=== PATIENT | male | born 1945 | race Hispanic/Latino ===

== ENCOUNTER 2017-02-09 11:06 | Observation (INO) | payer MEDICARE ==
[2017-02-09] MEDS ORDERED: NACL 0.9% 1 ML, VANCOMYCIN VIAL 1,000 MG IR ONE ×2 (11:35→14:30)
[2017-02-09 11:55] LABS: Basophils % (Auto) 0.6 % (0.0-1.8); Eosinophils % (Auto) 1.9 % (0.0-4.3); Hematocrit 39.1 % (35.5-45.6); Hemoglobin 13.7 gm/dl (11.8-15.2); Mean Corpuscular HGB Conc 35 % (32-34); Mean Corpuscular Hemoglobin 30 pg (28-32); Mean Corpuscular Volume 86 fl (84-94); Platelet Count 211 K/mm3 (140-440); Red Blood Count 4.56 M/mm3 (3.65-5.03); Red Cell Distribution Width 13.6 % (13.2-15.2); White Blood Count 4.4 K/mm3 (4.5-11.0)
[2017-02-09] MEDS ORDERED: ANCEF/STERILE WATER 2 GM/20 ML 2 GM/20 ML SYRINGE IV NR (12:00)
[2017-02-09 12:08] LABS: Anion Gap 17 mmol/L; Blood Urea Nitrogen 9 mg/dL (9-20); Calcium 9.2 mg/dL (8.4-10.2); Carbon Dioxide 27 mmol/L (22-30); Chloride 103.4 mmol/L (98-107); Glucose 103 mg/dL (75-100); Potassium 4.8 mmol/L (3.6-5.0); Sodium 143 mmol/L (137-145)
[2017-02-09 12:17] LABS: Partial Thromboplastin Time 29.2 Sec. (24.2-36.6)
[2017-02-09] MEDS ORDERED: NACL 0.45% 1000 ML 1,000 ML IV ONE (12:17)
[2017-02-09] MEDS: NACL 0.45% 1000 ML 1,000 ML IV SCH (12:40)
[2017-02-09] MEDS ORDERED: NACL 0.9% 500 ML IR ONE (14:27)
[2017-02-09] MEDS ORDERED: MARCAINE 0.5% 60 ML INFILTRATI ONE (14:28)
[2017-02-09] MEDS ORDERED: XYLOCAINE 1% 20 mL ONE ×2 (14:28→14:36)
[2017-02-09] MEDS ORDERED: ANCEF/STERILE WATER 2 GM/20 ML 2 GM/20 ML SYRINGE IV ONE (14:29)
[2017-02-09] MEDS: VERSED ONE ×2 (14:45→15:03)
[2017-02-09] MEDS: SUBLIMAZE ONE ×3 (14:46→15:13)
[2017-02-09] MEDS ORDERED: BENADRYL ONE (14:56)
--- NOTE | 2017-02-09 16:31 | Short Stay Summary ---
<CEDRIC ESPINAL - Last Filed: 02/09/17 16:37> Short Stay Documentation Date of service: 02/09/17 - History H&P: obtained from office - Allergies and Medications Current Medications: Allergies No Known Allergies Allergy (Verified 02/09/17 11:35) Home Medications Medication Instructions Recorded Confirmed Last Taken Type Amlodipine Besylate [Amlodipine 5 mg PO QDAY 02/09/17 02/09/17 02/08/17 History Besylate] HYDROcodone/APAP 5-325 [[place] 1 tab PO TID PRN 02/09/17 02/09/17 02/08/17 History 5-325 mg TAB] Lisinopril [Zestril] 20 mg PO QDAY 02/09/17 02/09/17 02/08/17 History Lovastatin [Altoprev] 40 mg PO QPM 02/09/17 02/09/17 02/08/17 History Active Medications Sodium Chloride (Nacl 0.45% 1000 Ml) 1,000 mls @ 50 mls/hr IV DIRECT BHAVIN Last Admin: 02/09/17 12:40 Dose: 50 mls/hr Cefazolin Sodium (Ancef/Sterile Water 2 Gm/20 Ml) 2 gm in 20 mls @ 80 mls/hr IV PREOP NR PRN Reason: Protocol Stop: 02/09/17 23:59 - Brief post op/procedure progress note Date of procedure: 02/09/17 Pre-op diagnosis: bradycardia Post-op diagnosis: same Procedure: PPM implantation - see report - Disposition Condition at discharge: Stable Disposition: DC-01 TO HOME OR SELFCARE Short Stay Discharge Plan Activity: advance as tolerated Follow up with: WENDY SUMMERS MD [Staff Physician] - 7 Days <MARY RAY - Last Filed: 02/10/17 13:27> Short Stay Documentation - History H&P: obtained from office - Allergies and Medications Current Medications: Allergies No Known Allergies Allergy (Verified 02/09/17 11:35) Home Medications Medication Instructions Recorded Confirmed Last Taken Type Amlodipine Besylate [Amlodipine 5 mg PO QDAY 02/09/17 02/09/17 02/08/17 History Besylate] HYDROcodone/APAP 5-325 [[place] 1 tab PO TID PRN 02/09/17 02/09/17 02/08/17 History 5-325 mg TAB] Lisinopril [Zestril] 20 mg PO QDAY 02/09/17 02/09/17 02/08/17 History Lovastatin [Altoprev] 40 mg PO QPM 02/09/17 02/09/17 02/08/17 History Active Medications Acetaminophen/Hydrocodone Bitart ([place] 5/325) each PO Q6H PRN PRN Reason: Pain, Moderate (4-6) Sodium Chloride (Nacl 0.45% 1000 Ml) 1,000 mls @ 50 mls/hr IV DIRECT BHAVIN Last Admin: 02/09/17 12:40 Dose: 50 mls/hr Cefazolin Sodium (Ancef/Sterile Water 2 Gm/20 Ml) 2 gm in 20 mls @ 80 mls/hr IV PREOP NR PRN Reason: Protocol Stop: 02/09/17 23:59 Cefazolin Sodium (Ancef/Ns 1 Gm/50 Ml) 1 gm in 50 mls @ 100 mls/hr IV Q8H BHAVIN Stop: 02/10/17 01:29 - Physical exam General appearance: no acute distress Integumentary: no rash, other (pacemaker generator pocket has no hematoma) HEENT: Atraumatic, Mucous membr. moist/pink Lungs: Clear to auscultation Heart: Regular rate, Normal S1, Normal S2 Gastrointestinal: normal, normoactive bowel sounds Extremities: pulses intact, pulses symmetrical, No edema Neurological: Normal gait, Normal speech, Cranial nerves 3-12 NL - Brief post op/procedure progress note Estimated blood loss: none Condition: stable - Hospital course Hospital course: He remained stable throughout his hospitalization with doubt cardiac symptoms. On the monitor on the day of discharge, he demonstrated intermittent failure to capture. After interrogation, it appears that his RV lead has been dislodged. This has been discussed with Dr. Summers and he will be undergoing a replacement of that lead next week. - Discharge Diagnoses (1) Presence of permanent cardiac pacemaker Status: Acute (2) Symptomatic bradycardia Status: Acute Short Stay Discharge Plan Activity: advance as tolerated Diet: low salt Wound: keep clean and dry Special Instructions: no heavy lifting, other (do not elevate left arm above shoulder level for 2 weeks)
--- NOTE | 2017-02-09 17:40 | XRay Report ---
FINAL REPORT EXAM: XR CHEST 1V AP HISTORY: Pacemaker Postop TECHNIQUE: upright single view chest PRIORS: None. FINDINGS: Cardiac and mediastinal contours are unremarkable. No focal pulmonary infiltrate is identified. No pleural fluid collection seen. Pulmonary vasculature is unremarkable. Left pacemaker noted. Lead wires intact. IMPRESSION: Negative single-view chest
[2017-02-09] MEDS: NORCO 5/325 PO PRN ×2 (18:01→23:38)
[2017-02-09] MEDS: ANCEF/NS 1 GM/50 ML 1 GM/50 ML BAG IV SCH (21:55)
[2017-02-10] MEDS: ANCEF/NS 1 GM/50 ML 1 GM/50 ML BAG IV SCH (05:16)
[2017-02-10] MEDS: NACL 0.45% 1000 ML 1,000 ML IV SCH (05:18)
[2017-02-10] MEDS: NORCO 5/325 PO PRN ×2 (05:23→15:09)
[2017-02-10 12:07] VITALS: BP 126/75
== END 2017-02-10 17:41 | disposition home or self-care (01) ==
LOC: CATHLABREC 11:06 → 4A 14:31
PROVIDERS: ADMIT Internal Medicine Cardiovascular Disease; ATTEND Internal Medicine Cardiovascular Disease
DX: I49.5 Sick sinus syndrome (principal); R00.1 Bradycardia, unspecified; I49.1 Atrial premature depolarization; R06.09 Other forms of dyspnea; I10 Essential (primary) hypertension; E78.5 Hyperlipidemia, unspecified
CPT/HCPCS: 33208; 36415; 71010; 80048; 85025; 85610; 85730; 93005; 93010; 96365; 96375; C1779; C1785; C1892; G0378; J0690; J1200; J2250; J3010; J3370; Q9967

== ENCOUNTER 2017-02-13 12:00 | Inpatient (IN) | payer MEDICARE ==
[2017-02-13] MEDS ORDERED: NACL 0.9% 1,000 ML, VANCOMYCIN VIAL 1,000 MG IR ONE (12:30)
[2017-02-13] MEDS ORDERED: ANCEF/STERILE WATER 2 GM/20 ML 2 GM/20 ML SYRINGE IV NR (13:00)
[2017-02-13] MEDS ORDERED: NACL 0.45% 1000 ML 1,000 ML IV SCH (14:00)
[2017-02-13] MEDS ORDERED: VANCOMYCIN/NS 1 GM/250 ML 1 GM/250 ML BAG IV ONE ×2 (14:45→14:47)
[2017-02-13] MEDS ORDERED: MARCAINE 0.5% INFILTRATI ONE (15:02)
[2017-02-13] MEDS ORDERED: XYLOCAINE 2% INFILTRATI ONE (15:02)
[2017-02-13] MEDS ORDERED: NACL 0.9% 500 ML 500 ML ONE (15:02)
[2017-02-13] MEDS: SUBLIMAZE ONE ×2 (15:15→15:26)
[2017-02-13] MEDS: VERSED ONE ×2 (15:15→15:26)
[2017-02-13] MEDS ORDERED: BENADRYL ONE (15:23)
[2017-02-13] MEDS ORDERED: VANCOMYCIN VIAL 1,000 MG in NACL 0.9% 1,000 ML IRRIGATION ONE (15:56)
[2017-02-13] MEDS: NORCO 5/325 PO PRN (19:54)
[2017-02-13] MEDS: ZOFRAN IV PRN (22:54)
[2017-02-13] MEDS: TYLENOL PO PRN (22:54)
[2017-02-13] MEDS: ANCEF/NS 1 GM/50 ML 1 GM/50 ML BAG IV SCH (22:55)
[2017-02-14] MEDS: NORCO 5/325 PO PRN ×2 (03:13→09:55)
[2017-02-14] MEDS: ULTRAM PO PRN ×2 (05:38→12:38)
[2017-02-14] MEDS: ANCEF/NS 1 GM/50 ML 1 GM/50 ML BAG IV SCH (06:49)
--- NOTE | 2017-02-14 07:29 | XRay Report ---
AP CHEST: HISTORY: Postop pacemaker placement AP view of the chest demonstrates a normal mediastinal and cardiac contour with clear lungs and normal bony and soft tissue structures. A 2-lead pacemaker device is in position terminating in the right atrium and right ventricle. No pneumothorax. IMPRESSION: Unremarkable AP chest.
[2017-02-14] MEDS: ZOFRAN IV PRN (07:57)
[2017-02-14] MEDS: TYLENOL PO PRN (07:57)
--- NOTE | 2017-02-14 10:56 | Short Stay Summary ---
Short Stay Documentation Date of service: 02/14/17 - History H&P: obtained from office - Allergies and Medications Current Medications: Allergies No Known Allergies Allergy (Verified 02/09/17 11:35) Home Medications Medication Instructions Recorded Confirmed Last Taken Type Amlodipine Besylate [Amlodipine 5 mg PO QDAY 02/09/17 02/13/17 02/12/17 History Besylate] 5mg HYDROcodone/APAP 5-325 [[place] 1 tab PO TID PRN 02/09/17 02/13/17 02/13/17 10:00 History 5-325 mg TAB] 1 tab Lisinopril [Zestril] 20 mg PO QDAY 02/09/17 02/13/17 02/12/17 History 20mg Lovastatin [Altoprev] 40 mg PO QPM 02/09/17 02/13/17 02/12/17 History 40mg Active Medications Acetaminophen (Tylenol) 650 mg PO Q4H PRN PRN Reason: Pain, Mild (1-3) Last Admin: 02/14/17 07:57 Dose: 650 mg Acetaminophen/Hydrocodone Bitart ([place] 5/325) 1 each PO Q6H PRN PRN Reason: Pain, Moderate (4-6) Last Admin: 02/14/17 09:55 Dose: 1 each Sodium Chloride (Nacl 0.45% 1000 Ml) 1,000 mls @ 42 mls/hr IV DIRECT BHAVIN Last Admin: 02/14/17 09:57 Dose: 42 mls/hr Ondansetron HCl (Zofran) 4 mg IV Q8H PRN PRN Reason: Nausea And Vomiting Last Admin: 02/14/17 07:57 Dose: 4 mg Tramadol HCl (Ultram) 50 mg PO Q6H PRN PRN Reason: Pain, Moderate (4-6) Last Admin: 02/14/17 05:38 Dose: 50 mg - Physical exam Integumentary: other (left pectoralis PPM implantation site covered with tegaderm and telfa dressing, site c/d/i with no evidence of bleeding or hematoma , left arm immobilizer in place) - Brief post op/procedure progress note Date of procedure: 02/13/17 Pre-op diagnosis: bradycardia Post-op diagnosis: same Procedure: PPM lead revision - see operative report Anesthesia: local Estimated blood loss: none Pathology: none Condition: stable - Hospital course Hospital course: Pt presented for scheduled PPM lead revision and successfully underwent lead revision per Dr. Summers on 02/13/2017. He was admitted overnight for observation and remained clinically and hemodynamically stable throughout his admission. Post-procedure CXR showed NAF, no pneumothorax. Device interrogation this AM revealed normal device function. VSS. He is discharging home today. - Disposition Condition at discharge: Stable Disposition: DC-01 TO HOME OR SELFCARE - Discharge Diagnoses (1) Presence of permanent cardiac pacemaker Status: Chronic (2) Symptomatic bradycardia Status: Chronic Short Stay Discharge Plan Activity: advance as tolerated Diet: low fat, low cholesterol, low salt Wound: keep clean and dry Follow up with: WENDY SUMMERS MD [Staff Physician] - 7 Days (02/26/2017 @ 2:30PM) Prescriptions: traMADol [Ultram 50 MG tab] 50 mg PO Q6H PRN #10 tablet PRN Reason: Pain, Moderate (4-6)
[2017-02-14 13:19] VITALS: BP 121/85
== END 2017-02-14 14:04 | disposition home or self-care (01) | DRG 262 ==
LOC: CATHLABREC 12:00 → 4A 13:13
PROVIDERS: ADMIT Internal Medicine Cardiovascular Disease; ATTEND Internal Medicine Cardiovascular Disease
PROC: 02WA3MZ Revision of Cardiac Lead in Heart, Percutaneous Approach (ICD-10-PCS; principal; 2017-02-13)
DX: T82.120A Displacement of cardiac electrode, initial encounter (principal); Z79.899 Other long term (current) drug therapy; I10 Essential (primary) hypertension; E78.5 Hyperlipidemia, unspecified; Y83.8 Other surgical procedures as the cause of abnormal reaction of the patient, or of later complication, without mention of misadventure at the time of the procedure; Y92.89 Other specified places as the place of occurrence of the external cause; I49.5 Sick sinus syndrome
CPT/HCPCS: 33215; 71010; 93005; 93010; J0690; J1200; J2250; J2405; J3010; J3370; J7040

== ENCOUNTER 2018-03-10 10:07 | Emergency (ER) | payer MEDICARE ==
[2018-03-10] MEDS ORDERED: ASPIRIN PO ONE (10:23)
[2018-03-10 11:15] LABS: Basophils % (Auto) 0.7 % (0.0-1.8); Eosinophils # (Auto) 0.1 K/mm3 (0.0-0.4); Eosinophils % (Auto) 2.5 % (0.0-4.3); Hematocrit 39.8 % (35.5-45.6); Hemoglobin 13.9 gm/dl (11.8-15.2); Lymphocytes # (Auto) 1.2 K/mm3 (1.2-5.4); Lymphocytes % (Auto) 24.8 % (13.4-35.0); Mean Corpuscular HGB Conc 35 % (32-34); Mean Corpuscular Hemoglobin 31 pg (28-32); Mean Corpuscular Volume 88 fl (84-94); Monocytes # (Auto) 0.4 K/mm3 (0.0-0.8); Monocytes % (Auto) 7.5 % (0.0-7.3); Red Blood Count 4.52 M/mm3 (3.65-5.03); Red Cell Distribution Width 13.5 % (13.2-15.2)
[2018-03-10 11:16] LABS: Platelet Count 213 K/mm3 (140-440)
[2018-03-10 11:18] LABS: BUN/Creatinine Ratio 14; Blood Urea Nitrogen 11 mg/dL (9-20); Calcium 9.1 mg/dL (8.4-10.2); Hemolysis Index 94
--- NOTE | 2018-03-10 16:23 | Emergency Department Report ---
HPI - General Chief Complaint: Chest Pain Time Seen by Provider: 03/10/18 11:58 - HPI HPI: The patient is a 72-year-old male who presents for evaluation of chest pain. The patient reports 1 week of on and off mild aching chest pain, associated with fatigue on exertion. The patient says that he received a stress test and echocardiogram within the past 3-4 months with his chief client officer Dr. Martinez. He states that his chest pain resolved prior to my evaluation. The patient denies fever, cough, dyspnea at rest, syncope, hemoptysis, unilateral leg swelling, recent immobilization. ED Past Medical Hx - Past Medical History Previous Medical History?: Yes Hx Hypertension: Yes Hx Heart Attack/AMI: No Hx Congestive Heart Failure: No Hx Diabetes: No Hx GERD: Yes Hx Arthritis: Yes Additional medical history: High cholesterol, pacemaker - Surgical History Hx Pacemaker: Yes (Current reason for admission) Additional Surgical History: collar bone, pace maker placement - Social History Smoking Status: Never Smoker - Medications Home Medications: Home Medications Medication Instructions Recorded Confirmed Last Taken Type Amlodipine Besylate 5 mg PO QDAY 02/09/17 02/13/17 02/12/17 History 5mg HYDROcodone/APAP 5-325 [[place] 1 tab PO TID PRN 02/09/17 02/13/17 02/13/17 10:00 History 5-325 mg TAB] 1 tab Lisinopril [Zestril TAB] 20 mg PO QDAY 02/09/17 02/13/17 02/12/17 History 20mg Lovastatin [Altoprev] 40 mg PO QPM 02/09/17 02/13/17 02/12/17 History 40mg traMADol [Ultram 50 MG tab] 50 mg PO Q6H PRN #10 tablet 02/14/17 Unknown Rx ED Review of Systems ROS: Stated complaint: CHEST PAINS Other details as noted in HPI Constitutional: denies: fever ENT: denies: throat or neck pain Respiratory: denies: cough, shortness of breath Cardiovascular: reports: chest pain Endocrine: denies unexplained weight loss or gain Gastrointestinal: denies: abdominal pain, nausea Genitourinary: denies: dysuria Musculoskeletal: denies: leg swelling Skin: denies: rash Neurological: denies: headache Hematological/Lymphatic: denies: easy bleeding or easy bruising Psych: denies sadness or hopelessness Physical Exam - Physical Exam Vital Signs: Vital Signs 03/10/18 03/10/18 03/10/18 10:13 15:47 15:49 Temperature 98.8 F Pulse Rate 50 L 64 Respiratory 18 16 16 Rate Blood Pressure 139/75 Blood Pressure 139/75 120/76 [Right] O2 Sat by Pulse 96 100 100 Oximetry Physical Exam: General: well-nourished, well-developed, no acute distress Head: Normocephalic, atraumatic Eyes: normal sclera ENT: Mucous membranes are pink and moist Neck: trachea midline, neck supple, No neck stiffness, no cervical adenopathy Respiratory: Breath sounds equal bilaterally, no wheezing, rales, or rhonchi Cardio: S1 and S2 present, no murmurs, rubs, gallops, capillary refill is brisk Abdomen: Normoactive bowel sounds, soft abdomen, no rigidity, no guarding or rebound tenderness Musc: No pitting edema Skin: No rash Neuro: no facial drooping, normal speech Psych: Normal affect ED Course Vital Signs 03/10/18 03/10/18 03/10/18 10:13 15:47 15:49 Temperature 98.8 F Pulse Rate 50 L 64 Respiratory 18 16 16 Rate Blood Pressure 139/75 Blood Pressure 139/75 120/76 [Right] O2 Sat by Pulse 96 100 100 Oximetry ED Medical Decision Making - Lab Data Result diagrams: 03/10/18 10:31 03/10/18 10:31 - Medical Decision Making The patient was seen and examined by myself. The patient is placed on a rn cardiac rehab and continuous pulse ox. On initial evaluation, the patient was found to be in no distress. EKG was negative for findings suggestive of acute cardiac infarct. Labs and imaging are obtained. Chest x-ray is negative for pneumothorax, focal consolidation, pulmonary vascular congestion, pleural effusion, or other obvious acute cardiopulmonary disease process. Lab results were non-concerning including levels of troponin, WBC, hemoglobin, hematocrit, electrolytes, renal function. The patient was reevaluated and reported that he remain asymptomatic, without any chest pain or dyspnea whatsoever. As the patient received a stress test within the past 6 months and echocardiogram within the past 6 months, and is found to have essentially unremarkable EKG and 2 sets of normal troponin levels, the patient is stable for outpatient follow- up with his chief client officer Dr. Martinez. The patient is given follow-up and return instructions. The patient expressed understanding and agreed with the plan. The patient is discharged in stable condition. Critical care attestation.: If time is entered above; I have spent that time in minutes in the direct care of this critically ill patient, excluding procedure time. ED Disposition Clinical Impression: Chest pain in adult Disposition: DC-01 TO HOME OR SELFCARE Is pt being admited?: No Does the pt Need Aspirin: No Condition: Stable Instructions: Angina (ED), Chest Pain (ED) Referrals: FLOR MARTINEZ MD [Staff Physician] - 3-5 Days PRIMARY CARE, [Primary Care Provider] - 3-5 Days Time of Disposition: 16:22
[2018-03-10 16:46] VITALS: BP 121/77
== END 2018-03-10 16:46 | disposition home or self-care (01) ==
LOC: ED 10:07
DX: R07.89 Other chest pain (principal); R53.83 Other fatigue; I10 Essential (primary) hypertension; M19.90 Unspecified osteoarthritis, unspecified site; K21.9 Gastro-esophageal reflux disease without esophagitis; E78.00 Pure hypercholesterolemia, unspecified; Z95.0 Presence of cardiac pacemaker; Z79.899 Other long term (current) drug therapy
CPT/HCPCS: 36415; 80048; 84484; 85025; 93005; 93010

== ENCOUNTER 2019-03-10 10:34 | Emergency (ER) | payer MEDICARE ==
[2019-03-10] MEDS ORDERED: ASPIRIN PO ONE (10:55)
[2019-03-10 11:27] LABS: Basophils % (Auto) 0.6 % (0.0-1.8); Eosinophils # (Auto) 0.1 K/mm3 (0.0-0.4); Eosinophils % (Auto) 2.4 % (0.0-4.3); Hematocrit 39.5 % (35.5-45.6); Hemoglobin 14.2 gm/dl (11.8-15.2); Lymphocytes # (Auto) 1.6 K/mm3 (1.2-5.4); Mean Corpuscular HGB Conc 36 % (32-34); Mean Corpuscular Volume 87 fl (84-94); Monocytes # (Auto) 0.6 K/mm3 (0.0-0.8); Monocytes % (Auto) 9.9 % (0.0-7.3); Platelet Count 227 K/mm3 (140-440); Red Blood Count 4.54 M/mm3 (3.65-5.03); Red Cell Distribution Width 13.7 % (13.2-15.2)
--- NOTE | 2019-03-10 11:45 | XRay Report ---
CHEST 1 VIEW INDICATION: Chest Pain. COMPARISON: 02/13/2017 report FINDINGS: Support devices: A 2-lead pacemaker device appears in good position. Heart: Within normal limits. Lungs/Pleura: No acute air space or interstitial disease. Additional findings: None. IMPRESSION: No acute findings. Signer Name: Jostin Huerta Jr, MD Signed: 03/10/2019 11:41 AM Workstation Name: [id number]
[2019-03-10 11:47] LABS: BUN/Creatinine Ratio 14; Blood Urea Nitrogen 19 mg/dL (9-20); Calcium 9.2 mg/dL (8.4-10.2); Hemolysis Index 6
[2019-03-10] MEDS ORDERED: NACL 0.9% 1000 ML 1,000 ML IV ONE (13:43)
[2019-03-10] MEDS ORDERED: TORADOL IV ONE (13:43)
[2019-03-10] MEDS ORDERED: ASPIRIN ONE (13:53)
--- NOTE | 2019-03-10 14:00 | Emergency Department Report ---
ED General Adult HPI - General Chief complaint: Chest Pain Stated complaint: CHEST PAIN/NAUSEA Time Seen by Provider: 03/10/19 13:31 Source: patient Mode of arrival: Ambulatory Limitations: No Limitations - History of Present Illness Initial comments: 73-year-old male with history of pacemaker, arthritis, chronic low back pain presents to ED with generalized weakness and pain. Patient reports chronic pain to right arm and leg for several years, told it was arthritis. Also reports chronic low back pain. Patient reports that he has been under the care of pain management and was taking lortab and another pain medication, but has not seen pain mgmt in 2 months. Patient also reports headache and neck pain for 1-2 months. Denies any injury, fall, car accident. Patient also has a pacemaker, reports mild, intermittent chest pain, lasting for a few seconds at a time. However, pt states he has been having this pain for 8 or 9 months. Pt states his chest pain is mild compared to his other reported pain. Location: head, neck, chest, right, upper extremity, lower extremity Severity scale (0 -10): 5 Quality: aching Consistency: intermittent Improves with: medication Worsens with: none Associated Symptoms: chest pain, headaches, nausea/vomiting, weakness. denies: cough, diaphoresis, fever/chills, shortness of breath - Related Data Home Medications Medication Instructions Recorded Confirmed Last Taken Amlodipine Besylate 5 mg PO QDAY 02/09/17 02/13/17 02/12/17 5mg HYDROcodone/APAP 5-325 [[place] 1 tab PO TID PRN 02/09/17 02/13/17 02/13/17 10:00 5-325 mg TAB] 1 tab Lisinopril [Zestril TAB] 20 mg PO QDAY 02/09/17 02/13/17 02/12/17 20mg Lovastatin [Altoprev] 40 mg PO QPM 02/09/17 02/13/17 02/12/17 40mg Previous Rx's Medication Instructions Recorded Last Taken Type traMADol [Ultram 50 MG tab] 50 mg PO Q6H PRN #10 tablet 02/14/17 Unknown Rx traMADol [Ultram] 50 mg PO Q6HR PRN #7 tablet 03/10/19 Unknown Rx Allergies Allergy/AdvReac Type Severity Reaction Status Date / Time No Known Allergies Allergy Verified 02/09/17 11:35 ED Review of Systems ROS: Stated complaint: CHEST PAIN/NAUSEA Other details as noted in HPI Comment: All other systems reviewed and negative Constitutional: denies: chills, fever Respiratory: denies: shortness of breath Cardiovascular: chest pain Gastrointestinal: nausea, vomiting. denies: abdominal pain Musculoskeletal: as per HPI Neurological: headache ED Past Medical Hx - Past Medical History Previous Medical History?: Yes Hx Hypertension: Yes Hx Heart Attack/AMI: No Hx Congestive Heart Failure: No Hx Diabetes: No Hx GERD: Yes Hx Arthritis: Yes Additional medical history: High cholesterol, pacemaker, hearing loss with bilateral hearing aids - Surgical History Past Surgical History?: Yes Hx Pacemaker: Yes (Current reason for admission) Additional Surgical History: collar bone, pace maker placement - Social History Smoking Status: Never Smoker Substance Use Type: None - Medications Home Medications: Home Medications Medication Instructions Recorded Confirmed Last Taken Type Amlodipine Besylate 5 mg PO QDAY 02/09/17 02/13/17 02/12/17 History 5mg HYDROcodone/APAP 5-325 [[place] 1 tab PO TID PRN 02/09/17 02/13/17 02/13/17 10:00 History 5-325 mg TAB] 1 tab Lisinopril [Zestril TAB] 20 mg PO QDAY 02/09/17 02/13/17 02/12/17 History 20mg Lovastatin [Altoprev] 40 mg PO QPM 02/09/17 02/13/17 02/12/17 History 40mg traMADol [Ultram 50 MG tab] 50 mg PO Q6H PRN #10 tablet 02/14/17 Unknown Rx traMADol [Ultram] 50 mg PO Q6HR PRN #7 tablet 03/10/19 Unknown Rx ED Physical Exam - General Limitations: No Limitations General appearance: alert, in no apparent distress - Head Head exam: Present: atraumatic, normocephalic - Eye Eye exam: Present: normal appearance, PERRL, EOMI - ENT ENT exam: Present: mucous membranes moist - Neck Neck exam: Present: normal inspection, full ROM. Absent: tenderness, meningismus - Respiratory Respiratory exam: Present: normal lung sounds bilaterally. Absent: respiratory distress - Cardiovascular Cardiovascular Exam: Present: regular rate, normal rhythm - GI/Abdominal GI/Abdominal exam: Present: soft. Absent: distended, tenderness - Extremities Exam Extremities exam: Present: normal inspection - Neurological Exam Neurological exam: Present: alert, oriented X3, CN II-XII intact. Absent: motor sensory deficit - Psychiatric Psychiatric exam: Present: normal affect - Skin Skin exam: Present: warm, dry, intact, normal color ED Course Vital Signs 03/10/19 03/10/19 03/10/19 10:52 13:30 13:41 Temperature 97.9 F Pulse Rate 61 67 Respiratory 18 9 L 13 Rate Blood Pressure 106/68 103/64 O2 Sat by Pulse 100 100 100 Oximetry 03/10/19 03/10/19 03/10/19 14:00 14:30 15:00 Temperature Pulse Rate 67 58 L 50 L Respiratory 7 L 8 L 8 L Rate Blood Pressure 105/68 115/67 115/70 O2 Sat by Pulse 100 100 100 Oximetry 03/10/19 03/10/19 03/10/19 15:30 16:03 16:31 Temperature Pulse Rate 50 L 54 L 62 Respiratory 9 L 16 11 L Rate Blood Pressure 105/61 105/61 118/55 O2 Sat by Pulse 100 100 Oximetry 03/10/19 03/10/19 17:00 17:30 Temperature Pulse Rate 66 51 L Respiratory 9 L 11 L Rate Blood Pressure 100/66 120/66 O2 Sat by Pulse 100 100 Oximetry ED Medical Decision Making - Lab Data Result diagrams: 03/10/19 10:58 03/10/19 10:58 - EKG Data -: EKG Interpreted by Vt EKG shows normal: sinus rhythm Rate: normal - EKG Data When compared to previous EKG there are: no significant change Interpretation: no acute changes, other (RBBB) - Radiology Data Radiology results: report reviewed, image reviewed - Medical Decision Making 73-year-old male with exacerbation of chronic pain due to his arthritis. He also reported several week history of headache and neck pain. Patient is afebrile, no signs of meningismus on exam. No noted neurologic deficits. No chest pain currently. Chest pain that was reported patient states has been present for several months now. EKG unremarkable. Troponin negative 2. Patient advised to follow up with his primary care physician. Return precautions given. - Differential Diagnosis chronic pain, ACS, radiculopathy, intracranial abnormality Critical care attestation.: If time is entered above; I have spent that time in minutes in the direct care of this critically ill patient, excluding procedure time. ED Disposition Clinical Impression: Chronic pain of right upper extremity, Chronic pain of right lower extremity, Degenerative disc disease, cervical, Headache, Chest pain Disposition: TO HOME OR SELFCARE Is pt being admited?: No Condition: Stable Instructions: Chest Pain (ED), Chronic Pain (ED), Degenerative Disc Disease (ED) Prescriptions: traMADol [Ultram] 50 mg PO Q6HR PRN #7 tablet PRN Reason: Pain Referrals: Rei GUTIERREZ MD [Staff Physician] - 3-5 Days TYRONE MEJIA MD [Primary Care Provider] - 3-5 Days PRIMARY CAREMD [Referring] - 3-5 Days CAITLYN MORIN MD [Staff Physician] - 3-5 Days TJ OMER MD [Referring] - 3-5 Days JACKLYN BAILEY MD [Staff Physician] - 3-5 Days CAMILA ROMAN MD [Referring] - 3-5 Days Time of Disposition: 17:33
[2019-03-10] MEDS ORDERED: SOLU-Medrol IV ONE (14:47)
[2019-03-10] MEDS ORDERED: NORCO 5/325 PO ONE ×2 (15:06→17:07)
--- NOTE | 2019-03-10 16:37 | Cat Scan Report ---
CT HEAD WITHOUT CONTRAST INDICATION / CLINICAL INFORMATION: headache. TECHNIQUE: All CT scans at this location are performed using CT dose reduction for ALARA by means of automated e xposure control. COMPARISON: None available. FINDINGS: HEMORRHAGE: No evidence of intracranial hemorrhage or extra-axial fluid collection. EXTRA-AXIAL SPACES: Cortical sulci and sylvian fissures are mildly enlarged reflecting a degree of pa renchymal volume loss which is within normal limits for the patient's age of 73 years. Basilar cister ns have an unremarkable appearance. VENTRICULAR SYSTEM: The third and lateral ventricles are within normal limits for size given the moira ent's age of 73 years. CEREBRAL PARENCHYMA: No significant areas of abnormal brain parenchymal attenuation are identified. MIDLINE SHIFT OR HERNIATION: There is no mass effect. CEREBELLUM / BRAINSTEM: Brainstem and cerebellum have an unremarkable appearance. INTRACRANIAL VESSELS:Calcified atherosclerotic plaque is present along the course of the cavernous se gments of both internal carotid arteries. ORBITS: Patient is status post cataract surgery. The orbits have an otherwise unremarkable appearance . SOFT TISSUES of HEAD: No significant abnormality. CALVARIUM: Evaluation of bone windows reveals no abnormalities. PARANASAL SINUSES / MASTOID AIR CELLS: Paranasal sinuses are free from inflammatory mucosal disease. Mastoid air cells are normally pneumatized. IMPRESSION: 1. No significant abnormalities are identified on head CT without contrast. Signer Name: Charly Ritchie MD Signed: 03/10/2019 4:33 PM Workstation Name: [id number] eyes
--- NOTE | 2019-03-10 16:54 | Cat Scan Report ---
CT CERVICAL SPINE WITHOUT CONTRAST INDICATION: Neck pain. COMPARISON: None available. TECHNIQUE: Axial, coronal and sagittal CT imaging of the cervical spine without contrast was performe d. All CT scans at this location are performed using CT dose reduction for ALARA by means of automat ed exposure control. FINDINGS: VERTEBRAE:No acute fracture. There is exaggeration of the cervical lordosis and mild levoscoliosis. DISC SPACES: Multilevel mild discogenic degenerative changes are most significant at C4-C5. FACET JOINTS:There is multilevel facet hypertrophy. CENTRAL CANAL: No significant central canal stenosis is identified. There is moderate to severe right neural foraminal narrowing at C4-C5 secondary to uncovertebral joint hypertrophy. No additional sign ificant neural foraminal narrowing is seen. SOFT TISSUES:No significant abnormality. LUNG APICES: No significant abnormality. ADDITIONAL FINDINGS: None IMPRESSION: 1. No acute abnormality of the cervical spine. 2. Degenerative changes as above. Signer Name: Flavio Mckinley MD Signed: 03/10/2019 4:49 PM Workstation Name: [id number]
[2019-03-10 17:50] VITALS: BP 120/66
== END 2019-03-10 17:45 | disposition home or self-care (01) ==
LOC: ED 10:34
DX: M79.601 Pain in right arm (principal); M54.5 Low back pain; R51 Headache; R07.89 Other chest pain; M50.30 Other cervical disc degeneration, unspecified cervical region; G89.29 Other chronic pain; I10 Essential (primary) hypertension; K21.9 Gastro-esophageal reflux disease without esophagitis; M19.90 Unspecified osteoarthritis, unspecified site; E78.00 Pure hypercholesterolemia, unspecified; Z95.0 Presence of cardiac pacemaker; Z79.899 Other long term (current) drug therapy
CPT/HCPCS: 36415; 70450; 71045; 72125; 80048; 84484; 85025; 93005; 93010; 96361; 96374; 96375; 99285; J1885; J2930; J7030

== ENCOUNTER 2019-05-06 11:03 | Emergency (ER) | payer MEDICARE ==
[2019-05-06] MEDS ORDERED: ASPIRIN 325 MG TAB PO ONE (11:32)
--- NOTE | 2019-05-06 12:10 | XRay Report ---
CHEST 1 VIEW INDICATION: Chest Pain. COMPARISON: 03/10/2019 FINDINGS: Support devices: 2-lead pacemaker device is unchanged in position. Heart: Within normal limits. Lungs/Pleura: No acute air space or interstitial disease. Additional findings: None. IMPRESSION: No acute findings. No change since 03/10/2019. Signer Name: Jostin Huerta Jr, MD Signed: 05/06/2019 12:06 PM Workstation Name: [id number]
[2019-05-06 12:46] LABS: Basophils % (Auto) 0.7 % (0.0-1.8); Eosinophils # (Auto) 0.1 K/mm3 (0.0-0.4); Eosinophils % (Auto) 2.6 % (0.0-4.3); Hemoglobin 12.8 gm/dl (11.8-15.2); Lymphocytes # (Auto) 1.2 K/mm3 (1.2-5.4); Lymphocytes % (Auto) 25.4 % (13.4-35.0); Mean Corpuscular HGB Conc 35 % (32-34); Mean Corpuscular Volume 87 fl (84-94); Monocytes # (Auto) 0.5 K/mm3 (0.0-0.8); Monocytes % (Auto) 10.2 % (0.0-7.3); Platelet Count 181 K/mm3 (140-440); Red Blood Count 4.14 M/mm3 (3.65-5.03); Red Cell Distribution Width 13.7 % (13.2-15.2)
[2019-05-06 14:01] LABS: Alanine Aminotransferase 18 units/L (7-56); Albumin 4.4 g/dL (3.9-5); BUN/Creatinine Ratio 14; Blood Urea Nitrogen 13 mg/dL (9-20); Calcium 9.1 mg/dL (8.4-10.2); Hemolysis Index 18
--- NOTE | 2019-05-06 16:35 | Emergency Department Report ---
HPI - General Chief Complaint: Upper Respiratory Infection Time Seen by Provider: 05/06/19 16:20 - HPI HPI: Room 3 The patient is a 73-year-old male presenting with a chief complaint of "feeling bad." The patient states the past 2-3 days has not felt like himself. Patient states he has a hard time describing what he is feeling but notices he has had decreased strength and nausea. Patient states at times he feels off balance and that his head does not "feel right." Patient denies pain of any type including chest pain. Patient does admit to shortness of breath and dyspnea on exertion and going up stairs for the past 2-3 days. Denies vomiting. Patient states he has had a cough but is nonproductive. Location: [See above] Duration: [See above] Quality: [See above] Severity: [See above] Timing: [See above] Context: [See above] Modifying factors: [See above] Associated signs and symptoms: [see above] ED Past Medical Hx - Past Medical History Previous Medical History?: Yes Hx Hypertension: Yes Hx GERD: Yes Hx Arthritis: Yes Additional medical history: High cholesterol, pacemaker, hearing loss with bilateral hearing aids - Surgical History Past Surgical History?: Yes Hx Pacemaker: Yes (Current reason for admission) Additional Surgical History: collar bone, pace maker placement - Family History Family history: no significant - Social History Smoking Status: Never Smoker Substance Use Type: None - Medications Home Medications: Home Medications Medication Instructions Recorded Confirmed Last Taken Type Amlodipine Besylate 5 mg PO QDAY 02/09/17 02/13/17 02/12/17 History 5 mg HYDROcodone/APAP 5-325 [[place] 1 tab PO TID PRN 02/09/17 02/13/17 02/13/17 10:00 History 5-325 mg TAB] 1 tab Lisinopril [Zestril TAB] 20 mg PO QDAY 02/09/17 02/13/17 02/12/17 History 20 mg Lovastatin [Altoprev] 40 mg PO QPM 02/09/17 02/13/17 02/12/17 History 40 mg traMADol [Ultram 50 MG tab] 50 mg PO Q6H PRN #10 tablet 02/14/17 Unknown Rx traMADol [Ultram] 50 mg PO Q6HR PRN #7 tablet 03/10/19 Unknown Rx ED Review of Systems ROS: Stated complaint: NOT FEELING GOOD/SICK Other details as noted in HPI Constitutional: fever (?), malaise Eyes: denies: eye pain ENT: throat pain Respiratory: shortness of breath, SOB with exertion Cardiovascular: denies: chest pain Endocrine: no symptoms reported Gastrointestinal: nausea. denies: vomiting Genitourinary: denies: dysuria Musculoskeletal: denies: back pain Neurological: denies: headache Physical Exam - Physical Exam Vital Signs: Vital Signs 05/06/19 11:11 Temperature 98.7 F Pulse Rate 81 Respiratory 18 Rate Blood Pressure 129/87 O2 Sat by Pulse 96 Oximetry Physical Exam: GENERAL: The patient is well-developed well-nourished male lying on stretcher not appearing to be in acute distress. [] HEENT: Normocephalic. Atraumatic. Extraocular motions are intact. Patient has moist mucous membranes. NECK: Supple. No meningitic signs are noted. Trachea midline CHEST/LUNGS: Clear to auscultation. There is no respiratory distress noted. HEART/CARDIOVASCULAR: Regular. There is no tachycardia. There is no gallop rub or murmur. ABDOMEN: Abdomen is soft, nontender. Patient has normal bowel sounds. There is no abdominal distention. SKIN: There is no rash. There is no edema. There is no diaphoresis. NEURO: The patient is awake, alert, and oriented. The patient is cooperative. The patient has no focal neurologic deficits. The patient has normal speech. Cranial nerves II through XII grossly intact, no drift MUSCULOSKELETAL: There is no evidence of acute injury. ED Course Vital Signs 05/06/19 11:11 Temperature 98.7 F Pulse Rate 81 Respiratory 18 Rate Blood Pressure 129/87 O2 Sat by Pulse 96 Oximetry ED Medical Decision Making - Lab Data Result diagrams: 05/06/19 11:58 05/06/19 11:58 Laboratory Tests 05/06/19 05/06/19 05/06/19 11:58 11:58 11:58 WBC 4.7 RBC 4.14 Hgb 12.8 Hct 36.0 MCV 87 MCH 31 MCHC 35 H RDW 13.7 Plt Count 181 Lymph % (Auto) 25.4 [place] % (Auto) 10.2 H Eos % (Auto) 2.6 Baso % (Auto) 0.7 Lymph # 1.2 [place] # 0.5 Eos # 0.1 Baso # 0.0 Seg Neutrophils % 61.1 Seg Neutrophils # 2.9 PT INR APTT D-Dimer Sodium 140 Potassium 5.0 Chloride 104.8 Carbon Dioxide 24 Anion Gap 16 BUN 13 Creatinine 0.9 Estimated GFR > 60 BUN/Creatinine Ratio 14 Glucose 113 H Calcium 9.1 Magnesium Total Bilirubin 0.70 AST 21 ALT 18 Alkaline Phosphatase 68 Troponin T < 0.010 NT-Pro-B Natriuret Pep Total Protein 6.8 Albumin 4.4 Albumin/Globulin Ratio 1.8 TSH Free T4 Urine Color Urine Turbidity Urine pH Ur Specific [place] Urine Protein Urine Glucose (UA) Urine Ketones Urine Blood Urine Nitrite Urine Bilirubin Urine Urobilinogen Ur Leukocyte Esterase Urine WBC (Auto) Urine RBC (Auto) U Epithel Cells (Auto) 05/06/19 05/06/19 05/06/19 16:29 16:29 16:29 WBC RBC Hgb Hct MCV MCH MCHC RDW Plt Count Lymph % (Auto) [place] % (Auto) Eos % (Auto) Baso % (Auto) Lymph # [place] # Eos # Baso # Seg Neutrophils % Seg Neutrophils # PT 13.2 INR 1.01 APTT 31.8 D-Dimer 308.21 H Sodium Potassium Chloride Carbon Dioxide Anion Gap BUN Creatinine Estimated GFR BUN/Creatinine Ratio Glucose Calcium Magnesium 2.20 Total Bilirubin AST ALT Alkaline Phosphatase Troponin T < 0.010 NT-Pro-B Natriuret Pep Total Protein Albumin Albumin/Globulin Ratio TSH Free T4 Urine Color Urine Turbidity Urine pH Ur Specific [place] Urine Protein Urine Glucose (UA) Urine Ketones Urine Blood Urine Nitrite Urine Bilirubin Urine Urobilinogen Ur Leukocyte Esterase Urine WBC (Auto) Urine RBC (Auto) U Epithel Cells (Auto) 05/06/19 05/06/19 05/06/19 16:29 16:34 16:39 WBC RBC Hgb Hct MCV MCH MCHC RDW Plt Count Lymph % (Auto) [place] % (Auto) Eos % (Auto) Baso % (Auto) Lymph # [place] # Eos # Baso # Seg Neutrophils % Seg Neutrophils # PT INR APTT D-Dimer Sodium Potassium Chloride Carbon Dioxide Anion Gap BUN Creatinine Estimated GFR BUN/Creatinine Ratio Glucose Calcium Magnesium Total Bilirubin AST ALT Alkaline Phosphatase Troponin T NT-Pro-B Natriuret Pep 76.46 Total Protein Albumin Albumin/Globulin Ratio TSH 1.060 Free T4 1.14 Urine Color Yellow Urine Turbidity Clear Urine pH 7.0 Ur Specific [place] 1.013 Urine Protein <15 mg/dl Urine Glucose (UA) Neg Urine Ketones Neg Urine Blood Neg Urine Nitrite Neg Urine Bilirubin Neg Urine Urobilinogen < 2.0 Ur Leukocyte Esterase Neg Urine WBC (Auto) < 1.0 Urine RBC (Auto) < 1.0 U Epithel Cells (Auto) < 1.0 05/06/19 19:00 WBC RBC Hgb Hct MCV MCH MCHC RDW Plt Count Lymph % (Auto) [place] % (Auto) Eos % (Auto) Baso % (Auto) Lymph # [place] # Eos # Baso # Seg Neutrophils % Seg Neutrophils # PT INR APTT D-Dimer Sodium Potassium Chloride Carbon Dioxide Anion Gap BUN Creatinine Estimated GFR BUN/Creatinine Ratio Glucose Calcium Magnesium Total Bilirubin AST ALT Alkaline Phosphatase Troponin T < 0.010 NT-Pro-B Natriuret Pep Total Protein Albumin Albumin/Globulin Ratio TSH Free T4 Urine Color Urine Turbidity Urine pH Ur Specific [place] Urine Protein Urine Glucose (UA) Urine Ketones Urine Blood Urine Nitrite Urine Bilirubin Urine Urobilinogen Ur Leukocyte Esterase Urine WBC (Auto) Urine RBC (Auto) U Epithel Cells (Auto) - EKG Data -: EKG Interpreted by Me EKG shows normal: sinus rhythm Rate: bradycardia (53 bpm) - EKG Data When compared to previous EKG there are: previous EKG unavailable Interpretation: nonspecific ST-T wave ashly (T-wave inversion in lead 3) - Radiology Data Radiology results: report reviewed (chest x-ray, CT head), image reviewed (chest x-ray, CT head) interpreted by me: Chest x-ray-no focal infiltrates, no pneumothorax [address] [address] XRay Report Signed Patient: AISLINN FIERRO MR#: [id number] 47 : 1945 Acct:[id number] Age/Sex: 73 / M ADM Date: 05/06/19 Loc: ED Attending Dr: Ordering Physician: URBANO BARRY MD Date of Service: 05/06/19 Procedure(s): XR chest 1V ap Accession Number(s): [id number] cc: ED MD JHONNY Fluoro Time In Minutes: CHEST 1 VIEW INDICATION: Chest Pain. COMPARISON: 03/10/2019 FINDINGS: Support devices: 2-lead pacemaker device is unchanged in position. Heart: Within normal limits. Lungs/Pleura: No acute air space or interstitial disease. Additional findings: None. IMPRESSION: No acute findings. No change since 03/10/2019. Signer Name: Jostin Huerta Jr, MD Signed: 05/06/2019 12:06 PM Workstation Name: [id number] Transcribed By: TTR Dictated By: JOSTIN HUERTA JR, MD Electronically Authenticated By: JOSTIN HUERTA JR, MD Signed Date/Time: 05/06/191205 DD/ 05 TD/TT: [facility] [address] [place] [address] Cat Scan Report Signed Patient: AISLINN FIERRO MR#: [id number] [birth year] : 1945 Acct:[id number] Age/Sex: 73 / M ADM Date: 05/06/19 Loc: ED Attending Dr: Ordering Physician: TATIANA FONG MD Date of Service: 05/06/19 Procedure(s): CT head/brain wo con Accession Number(s): [id number] cc: TATIANA FONG MD CT BRAIN: 05/06/2019 INDICATION / CLINICAL INFORMATION: nausea, "head doesn't feel right". COMPARISON: 03/10/2019 FINDINGS: BRAIN/INTRACRANIAL STRUCTURES: Unenhanced CT images of the brain demonstrate no evidence of acute intracranial abnormality. Ventricles and sulci are slightly prominent in size, consistent with age-related atrophic change. There is no evidence of acute ischemic injury, hemorrhage, or mass. There are no abnormal extra-axial fluid collections. EXTRACRANIAL STRUCTURES: Unremarkable. IMPRESSION: No acute abnormality. No change when compared to 03/10/2019. All CT scans at this location are performed using dose reduction to ALARA by means of automated exposure control. Signer Name: Tomas Machado MD Signed: 05/06/2019 5:00 PM Workstation Name: [id number] Transcribed By: AO Dictated By: Tomas Machado MD Electronically Authenticated By: Tomas Machado MD Signed Date/Time: 05/06/19 170 DD/ 58 TD/TT: - Differential Diagnosis symptoms dramatically anemia, hypothyroidism, electrolyte abnormality, ACS, Critical care attestation.: If time is entered above; I have spent that time in minutes in the direct care of this critically ill patient, excluding procedure time. ED Disposition Clinical Impression: Decreased energy Disposition: DC-01 TO HOME OR SELFCARE Is pt being admited?: No Does the pt Need Aspirin: No Condition: Stable Instructions: Weakness (ED) Additional Instructions: Return to the emergency department should you develop worsening symptoms, inability to tolerate food or liquids, high fever or any other concerns Referrals: TYRONE MEJIA MD [Primary Care Provider] - 3-5 Days Time of Disposition: 21:28
[2019-05-06 16:58] LABS: Bilirubin,Urine NEG (Negative); Blood,Urine NEG (Negative); Color,Urine Yellow (Yellow); Protein,Urine <15 mg/dL mg/dL (Negative); RBC,Urine < 1.0 /HPF (0.0-6.0); Urobilinogen,Urine < 2.0 mg/dL (<2.0); WBC,Urine < 1.0 /HPF (0.0-6.0)
--- NOTE | 2019-05-06 17:04 | Cat Scan Report ---
CT BRAIN: 05/06/2019 INDICATION / CLINICAL INFORMATION: nausea, "head doesn't feel right". COMPARISON: 03/10/2019 FINDINGS: BRAIN/INTRACRANIAL STRUCTURES: Unenhanced CT images of the brain demonstrate no evidence of acute int racranial abnormality. Ventricles and sulci are slightly prominent in size, consistent with age-related atrophic change. There is no evidence of acute ischemic injury, hemorrhage, or mass. There are no abnormal extra-axial fluid collections. EXTRACRANIAL STRUCTURES: Unremarkable. IMPRESSION: No acute abnormality. No change when compared to 03/10/2019. All CT scans at this location are performed using dose reduction to ALARA by means of automated expos ure control. Signer Name: Tomas Machado MD Signed: 05/06/2019 5:00 PM Workstation Name: [id number]
[2019-05-06 17:16] LABS: Free T4 (Free Thyroxine) 1.14 ng/dL (0.76-1.46)
[2019-05-06 17:27] LABS: INR 1.01 (0.87-1.13)
[2019-05-06 17:29] LABS: Partial Thromboplastin Time 31.8 Sec. (24.2-36.6)
[2019-05-06] MEDS ORDERED: ACETAMINOPHEN 500 MG TAB PO ONE (19:02)
--- NOTE | 2019-05-06 21:13 | Cat Scan Report ---
CTA CHEST WITH IV CONTRAST INDICATION: shortness of breath, elevated d-dimer. TECHNIQUE: Axial CT images were obtained through the chest after injection of 100 cc Omnipaque 350 IV contrast. 3 plane MIP reconstructions were produced. All CT scans at this location are performed using CT dose reduction for ALARA by means of automated exposure control. COMPARISON: None available. FINDINGS: PULMONARY ARTERIES: No pulmonary emboli. THORACIC AORTA: No acute abnormality. HEART: Normal. CORONARY ARTERIES: No significant calcification. PLEURA: No pleural effusion. No pneumothorax. LYMPH NODES: No significant adenopathy. LUNGS: 7 mm right upper lobe pulmonary nodule image 56. Bibasilar dependent atelectasis. ADDITIONAL FINDINGS: Left subclavian pacemaker leads. UPPER ABDOMEN: No acute findings. Gallbladder surgically absent. SKELETAL STRUCTURES: No significant osseous abnormality. IMPRESSION: 1. No CT evidence for pulmonary embolism. 2. No acute findings. Signer Name: Eze Bolanos MD Signed: 05/06/2019 9:08 PM Workstation Name: [id number]
[2019-05-06 21:39] VITALS: BP 147/68
== END 2019-05-06 21:30 | disposition home or self-care (01) ==
LOC: ED 11:03
DX: R53.83 Other fatigue (principal); I10 Essential (primary) hypertension; K21.9 Gastro-esophageal reflux disease without esophagitis; M19.90 Unspecified osteoarthritis, unspecified site; E78.00 Pure hypercholesterolemia, unspecified; Z95.0 Presence of cardiac pacemaker
CPT/HCPCS: 36415; 70450; 71045; 71275; 80053; 81001; 83735; 83880; 84439; 84443; 84484; 85025; 85379; 85610; 85730; 93005; 93010; 99285; Q9967

== ENCOUNTER 2019-11-26 14:40 | Observation (INO) | payer MEDICARE ==
[2019-11-26] MEDS ORDERED: ASPIRIN 325 MG TAB PO ONE (18:27)
--- NOTE | 2019-11-26 18:57 | XRay Report ---
CHEST 2 VIEWS INDICATION / CLINICAL INFORMATION: MAIN: Chest Pain; Pt. sent by Dr. Sandy for edema. Pt. has hx of CHF and has an AICD. COMPARISON: 05/06/2019 FINDINGS: SUPPORT DEVICES: Left-sided pacemaker HEART / MEDIASTINUM: No significant abnormality. LUNGS / PLEURA: No significant pulmonary or pleural abnormality. No pneumothorax. ADDITIONAL FINDINGS: No significant additional findings. IMPRESSION: No acute disease or interval change from 05/06/2019 Signer Name: Abraham Moreno MD FACR Signed: 11/26/2019 6:53 PM Workstation Name: [id number]
--- NOTE | 2019-11-26 20:26 | Emergency Department Report ---
ED Chest Pain HPI - General Chief Complaint: Dyspnea/Respdistress Stated Complaint: DOC SENT/CHEST/STOMACH PAIN/BRENDA Time Seen by Provider: 11/26/19 20:03 Source: patient Mode of arrival: Ambulatory Limitations: No Limitations - History of Present Illness Initial Comments: Patient is 73 years old male with history of hypertension, pacemaker. 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 Patient stated that he does not have chest pain at this moment but he has been experiencing some chest pain for the last few days associated with shortness of breath especially when he climbed stair. Patient is also complaining of bilateral lower extremity swelling and abdominal swelling. Patient denied any fever or cough. No runny nose or congestion. Patient also denied any contact with patient with COVID-19. MD Complaint: chest pain -: days(s) Onset: during rest Pain Location: substernal Severity: mild Quality: heaviness - Related Data Home Medications Medication Instructions Recorded Confirmed Last Taken Amlodipine Besylate 5 mg PO QDAY 02/09/17 02/13/17 02/12/17 5 mg HYDROcodone/APAP 5-325 [[place] 1 tab PO TID PRN 02/09/17 02/13/17 02/13/17 10:00 5-325 mg TAB] 1 tab Lovastatin [Altoprev] 40 mg PO QPM 02/09/17 02/13/17 02/12/17 40 mg lisinopriL [Zestril TAB] 20 mg PO QDAY 02/09/17 02/13/17 02/12/17 20 mg Previous Rx's Medication Instructions Recorded Last Taken Type traMADoL [Ultram 50 MG tab] 50 mg PO Q6H PRN #10 tablet 02/14/17 Unknown Rx traMADoL [Ultram] 50 mg PO Q6HR PRN #7 tablet 03/10/19 Unknown Rx Allergies Allergy/AdvReac Type Severity Reaction Status Date / Time No Known Allergies Allergy Verified 02/09/17 11:35 Heart Score - HEART Score History: Moderately suspicious EKG: Non-specific Age: > 65 Risk factors: > 3 risk factors or hx of atherosclerotic disease Troponin: < normal limit HEART Score: 6 - Critical Actions Critical Actions: 4-6 pts:12-16.6% risk of adverse cardiac event. Should be admitted ED Review of Systems ROS: Stated complaint: DOC SENT/CHEST/STOMACH PAIN/BRENDA Other details as noted in HPI ED Past Medical Hx - Past Medical History Previous Medical History?: Yes Hx Hypertension: Yes Hx Heart Attack/AMI: No Hx Congestive Heart Failure: No Hx Diabetes: No Hx GERD: Yes Hx Arthritis: Yes Additional medical history: High cholesterol, pacemaker, hearing loss with b ilateral hearing aids - Surgical History Past Surgical History?: Yes Hx Pacemaker: Yes (Current reason for admission) Additional Surgical History: collar bone, pace maker placement - Social History Smoking Status: Never Smoker Substance Use Type: None - Medications Home Medications: Home Medications Medication Instructions Recorded Confirmed Last Taken Type Amlodipine Besylate 5 mg PO QDAY 02/09/17 02/13/17 02/12/17 History 5 mg HYDROcodone/APAP 5-325 [[place] 1 tab PO TID PRN 02/09/17 02/13/17 02/13/17 10:00 History 5-325 mg TAB] 1 tab Lovastatin [Altoprev] 40 mg PO QPM 02/09/17 02/13/17 02/12/17 History 40 mg lisinopriL [Zestril TAB] 20 mg PO QDAY 02/09/17 02/13/17 02/12/17 History 20 mg traMADoL [Ultram 50 MG tab] 50 mg PO Q6H PRN #10 tablet 02/14/17 Unknown Rx traMADoL [Ultram] 50 mg PO Q6HR PRN #7 tablet 03/10/19 Unknown Rx ED Physical Exam - General Limitations: No Limitations General appearance: alert, in no apparent distress - Head Head exam: Present: atraumatic, normocephalic, normal inspection - Eye Eye exam: Present: normal appearance, PERRL - ENT ENT exam: Present: normal exam, normal orophraynx, mucous membranes moist - Neck Neck exam: Present: normal inspection, full ROM. Absent: tenderness, meningismus - Respiratory Respiratory exam: Present: normal lung sounds bilaterally - Cardiovascular Cardiovascular Exam: Present: bradycardia - GI/Abdominal GI/Abdominal exam: Present: soft, normal bowel sounds. Absent: distended, tenderness, guarding, rebound, rigid, organomegaly, mass, bruit, pulsatile mass, hernia - Extremities Exam Extremities exam: Present: normal inspection, full ROM, normal capillary refill, pedal edema. Absent: calf tenderness - Back Exam Back exam: Present: normal inspection, full ROM. Absent: CVA tenderness (R), CVA tenderness (L) - Neurological Exam Neurological exam: Present: alert, oriented X3, CN II-XII intact - Psychiatric Psychiatric exam: Present: normal mood - Skin Skin exam: Present: warm, intact, normal color ED Course Vital Signs 11/26/19 11/26/19 11/26/19 14:46 14:49 20:20 Temperature 98.0 F 97.6 F Pulse Rate 60 61 Respiratory 18 12 Rate Blood Pressure 125/73 Blood Pressure 138/76 [Left] O2 Sat by Pulse 97 98 Oximetry 11/26/19 21:12 Temperature Pulse Rate Respiratory 16 Rate Blood Pressure Blood Pressure [Left] O2 Sat by Pulse Oximetry ED Medical Decision Making - Lab Data Result diagrams: 11/26/19 19:56 11/26/19 19:56 - EKG Data -: EKG Interpreted by Ma EKG shows normal: sinus rhythm Rate: bradycardia - EKG Data Interpretation: no acute changes - Radiology Data Radiology results: report reviewed - Medical Decision Making Patient is 73 years old male with history of hypertension, pacemaker. 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 Patient stated that he does not have chest pain at this moment but he has been experiencing some chest pain for the last few days associated with shortness of breath especially when he climbed stair. Patient is also complaining of bilateral lower extremity swelling and abdominal swelling. Patient denied any fever or cough. No runny nose or congestion. Patient also denied any contact with patient with COVID-19. EKG shows sinus bradycardia, no ST elevation. Chest x-ray is unremarkable. Labs reviewed and showed a negative troponin. I discussed the patient with Dr. Santo, he agreed to admit the patient to medical service for further management Critical care attestation.: If time is entered above; I have spent that time in minutes in the direct care of this critically ill patient, excluding procedure time. ED Disposition Clinical Impression: Chest pain, Shortness of breath Disposition: OP ADMIT IP TO THIS HOSP Is pt being admited?: Yes Condition: Stable Instructions: Chest Pain (ED) Referrals: TYRONE MEJIA MD [Primary Care Provider] - 3-5 Days
[2019-11-26 20:28] LABS: Basophils % (Auto) 0.8 % (0.0-1.8); Eosinophils # (Auto) 0.2 K/mm3 (0.0-0.4); Eosinophils % (Auto) 4.3 % (0.0-4.3); Hematocrit 38.2 % (35.5-45.6); Hemoglobin 13.1 gm/dl (11.8-15.2); Lymphocytes # (Auto) 1.6 K/mm3 (1.2-5.4); Lymphocytes % (Auto) 36.6 % (13.4-35.0); Mean Corpuscular HGB Conc 34 % (32-34); Mean Corpuscular Volume 87 fl (84-94); Monocytes # (Auto) 0.5 K/mm3 (0.0-0.8); Monocytes % (Auto) 11.9 % (0.0-7.3); Platelet Count 185 K/mm3 (140-440); Red Blood Count 4.42 M/mm3 (3.65-5.03); Red Cell Distribution Width 13.5 % (13.2-15.2)
[2019-11-26 20:37] LABS: INR 1.08 (0.87-1.13)
[2019-11-26 20:37] LABS: BUN/Creatinine Ratio 14; Blood Urea Nitrogen 14 mg/dL (9-20); Calcium 9.4 mg/dL (8.4-10.2); Hemolysis Index 4
[2019-11-26 20:38] LABS: Partial Thromboplastin Time 29.5 Sec. (24.2-36.6)
[2019-11-26 20:41] LABS: Alanine Aminotransferase 13 units/L (7-56); Albumin 4.3 g/dL (3.9-5); Bilirubin,Direct < 0.2 mg/dL (0-0.2)
[2019-11-26] MEDS ORDERED: ASPIRIN 325 MG TAB ONE (21:07)
[2019-11-26] MEDS ORDERED: MORPHINE 2 MG/1 ML INJ ONE (21:07)
[2019-11-26] MEDS ORDERED: MORPHINE 2 MG/1 ML INJ IV ONE (21:07)
[2019-11-26] MEDS ORDERED: ONDANSETRON 4 MG/2 ML INJ ONE (21:07)
[2019-11-26] MEDS ORDERED: ONDANSETRON 4 MG/2 ML INJ IV ONE (21:07)
[2019-11-26] MEDS ORDERED: ONDANSETRON 4 MG/2 ML INJ IV PRN (22:29)
[2019-11-26] MEDS ORDERED: ACETAMINOPHEN 325 MG TAB PO PRN (22:29)
[2019-11-26] MEDS ORDERED: MAGNESIUM HYDROXIDE (MOM) ORAL LIQD UDC PO PRN (22:29)
[2019-11-26] MEDS ORDERED: NITROGLYCERIN 0.4 MG TAB SUBL SL PRN (22:29)
[2019-11-26] MEDS ORDERED: MORPHINE 2 MG/1 ML INJ IV PRN (22:29)
--- NOTE | 2019-11-26 22:40 | History and Physical Report ---
History of Present Illness Date of examination: 11/26/19 Date of admission: 11/26/2019 Chief complaint: Chest pain History of present illness: 73-year-old male with history of hypertension history of pacemaker in place presenting to the emergency room today complaining of chest pain shortness of breath which has been ongoing for about 3 days. Patient follows up with Dr. Du yap elevator conductor. He has been encouraged to report to the emergency room by his elevator conductor if he continues to have the symptoms. Indicates his chest pain and shortness of breath is worse on exertion especially when he climbs the stairs. Chest pain improves upon rest. Denies any fever or chills, no nausea vomiting, no headache or dizziness. He has had some mild ankle swelling lately. Patient denies any recent travel and no sick contacts. Denies any contact with anyone with COVID-19. Upon arrival in the emergency room chest pain was said to have subsided. Work-up so far in the emergency room has been unremarkable. Past History Past Medical History: arthritis, GERD, hypertension, hyperlipidemia Past Surgical History: Other (Pacemaker placement, collar bone surgery) Social history: no significant social history Family history: no significant family history Medications and Allergies Allergies Allergy/AdvReac Type Severity Reaction Status Date / Time No Known Allergies Allergy Verified 02/09/17 11:35 Home Medications Medication Instructions Recorded Confirmed Last Taken Type Amlodipine Besylate 5 mg PO QDAY 02/09/17 02/13/17 02/12/17 History 5 mg HYDROcodone/APAP 5-325 [[place] 1 tab PO TID PRN 02/09/17 02/13/17 02/13/17 10:00 History 5-325 mg TAB] 1 tab Lovastatin [Altoprev] 40 mg PO QPM 02/09/17 02/13/17 02/12/17 History 40 mg lisinopriL [Zestril TAB] 20 mg PO QDAY 02/09/17 02/13/17 02/12/17 History 20 mg traMADoL [Ultram 50 MG tab] 50 mg PO Q6H PRN #10 tablet 02/14/17 Unknown Rx traMADoL [Ultram] 50 mg PO Q6HR PRN #7 tablet 03/10/19 Unknown Rx Active Meds: Active Medications Acetaminophen (Tylenol) 650 mg PO Q4H PRN PRN Reason: Pain MILD(1-3)/Fever >100.5/CANALES Aspirin (Ecotrin) 325 mg PO QDAY BHAVIN Magnesium Hydroxide (Milk Of Magnesia) 30 ml PO Q4H PRN PRN Reason: Constipation Morphine Sulfate (Morphine) 2 mg IV Q5MIN PRN PRN Reason: Chest Pain unrelieved by NTG Nitroglycerin (Nitrostat) 0.4 mg SL Q5M PRN PRN Reason: Chest Pain Ondansetron HCl (Zofran) 4 mg IV Q8H PRN PRN Reason: Nausea And Vomiting Sodium Chloride (Sodium Chloride Flush Syringe 10 Ml) 10 ml IV PRN PRN PRN Reason: LINE FLUSH Sodium Chloride (Sodium Chloride Flush Syringe 10 Ml) 10 ml IV BID BHAVIN Sodium Chloride (Sodium Chloride Flush Syringe 10 Ml) 10 ml IV PRN PRN PRN Reason: LINE FLUSH Review of Systems Constitutional: no fever, no chills, no sweats Cardiovascular: chest pain, no palpitations Respiratory: shortness of breath, no cough Gastrointestinal: no abdominal pain, no nausea, no vomiting, no diarrhea Genitourinary Male: no dysuria, no hematuria Musculoskeletal: no neck pain, no low back pain Integumentary: no rash, no pruritis Neurological: no syncope, no headaches, no confusion Exam - Constitutional Vitals: Temp Pulse Resp BP Pulse Ox 97.6 F 61 16 138/76 98 11/26/19 20:20 11/26/19 20:20 11/26/19 21:12 11/26/19 20:20 11/26/19 20:20 General appearance: Present: no acute distress, well-nourished - EENT Eyes: Present: PERRL, EOM intact ENT: hearing intact, clear oral mucosa, dentition normal - Neck Neck: Present: supple, normal ROM - Respiratory Respiratory effort: normal Respiratory: bilateral: CTA - Cardiovascular Rhythm: other (Pacemaker in place on the left anterior chest wall) Heart Sounds: Present: S1 & S2 - Extremities Extremities: no ischemia, pulses intact, pulses symmetrical, No edema, Full ROM Peripheral Pulses: within normal limits - Abdominal General gastrointestinal: Present: soft, non-tender, non-distended, normal bowel sounds - Integumentary Integumentary: Present: clear, warm, dry - Musculoskeletal Musculoskeletal: strength equal bilaterally - Psychiatric Psychiatric: appropriate mood/affect, intact judgment & insight, cooperative - Neurologic Neurologic: CNII-XII intact, moves all extremities HEART Score - HEART Score EKG: Non-specific Age: > 65 Risk factors: > 3 risk factors or hx of atherosclerotic disease Troponin: Troponin T < 0.010 ng/mL (0.00-0.029) 11/26/19 21:39 Troponin: < normal limit - Critical Actions Critical Actions: 4-6 pts:12-16.6% risk of adverse cardiac event. Should be ad mitted Results - Labs CBC & Chem 7: 11/26/19 22:58 11/26/19 22:58 Labs: Abnormal lab results 11/26/19 Range/Units 19:56 WBC 4.4 L (4.5-11.0) K/mm3 Lymph % (Auto) 36.6 H (13.4-35.0) % Door % (Auto) 11.9 H (0.0-7.3) % Assessment and Plan - Patient Problems (1) Chest pain Current Visit: Yes Status: Acute Plan to address problem: Patient has been admitted and placed on telemetry. Will check serial cardiac enzymes. Patient will be placed on daily aspirin, will also place on sublingual nitroglycerin and IV morphine as needed for chest pain. Patient follows up with elevator conductor Dr. Sandy (2) Bradycardia Current Visit: Yes Status: Acute Plan to address problem: Currently asymptomatic. Patient has pacemaker in place. (3) DVT prophylaxis Current Visit: Yes Status: Acute Plan to address problem: Patient placed on subcutaneous heparin (4) Full code status Current Visit: Yes Status: Acute
[2019-11-26 23:26] LABS: Basophils % (Auto) 0.8 % (0.0-1.8); Eosinophils # (Auto) 0.2 K/mm3 (0.0-0.4); Eosinophils % (Auto) 4.3 % (0.0-4.3); Hematocrit 34.3 % (35.5-45.6); Hemoglobin 12.3 gm/dl (11.8-15.2); Lymphocytes # (Auto) 1.6 K/mm3 (1.2-5.4); Lymphocytes % (Auto) 42.4 % (13.4-35.0); Mean Corpuscular HGB Conc 36 % (32-34); Mean Corpuscular Volume 85 fl (84-94); Monocytes # (Auto) 0.4 K/mm3 (0.0-0.8); Monocytes % (Auto) 10.3 % (0.0-7.3); Platelet Count 165 K/mm3 (140-440); Red Blood Count 4.05 M/mm3 (3.65-5.03); Red Cell Distribution Width 13.3 % (13.2-15.2)
[2019-11-26] MEDS ORDERED: MELATONIN 5 MG TAB PO ONE ×2 (23:35→23:37)
[2019-11-26 23:47] LABS: BUN/Creatinine Ratio 14; Blood Urea Nitrogen 13 mg/dL (9-20); Calcium 8.9 mg/dL (8.4-10.2); Hemolysis Index 24
[2019-11-27] MEDS: HEPARIN 5,000 UNIT/1 ML VIAL SUB-Q SCH ×2 (06:16→15:42)
[2019-11-27 06:34] LABS: Basophils % (Auto) 0.9 % (0.0-1.8); Eosinophils # (Auto) 0.1 K/mm3 (0.0-0.4); Eosinophils % (Auto) 4.1 % (0.0-4.3); Hematocrit 35.3 % (35.5-45.6); Hemoglobin 12.2 gm/dl (11.8-15.2); Lymphocytes # (Auto) 1.4 K/mm3 (1.2-5.4); Lymphocytes % (Auto) 39.3 % (13.4-35.0); Mean Corpuscular HGB Conc 35 % (32-34); Mean Corpuscular Volume 85 fl (84-94); Monocytes # (Auto) 0.3 K/mm3 (0.0-0.8); Monocytes % (Auto) 10.1 % (0.0-7.3); Platelet Count 171 K/mm3 (140-440); Red Blood Count 4.16 M/mm3 (3.65-5.03); Red Cell Distribution Width 13.3 % (13.2-15.2)
[2019-11-27 06:41] LABS: INR 1.03 (0.87-1.13)
[2019-11-27 06:54] LABS: BUN/Creatinine Ratio 14; Blood Urea Nitrogen 13 mg/dL (9-20); Hemolysis Index 5
[2019-11-27] MEDS ORDERED: REGADENOSON 0.4 MG/5 ML INJ IV ONE (07:04)
[2019-11-27] MEDS ORDERED: ASPIRIN EC 325 MG TAB PO SCH (10:00)
--- NOTE | 2019-11-27 10:05 | Consultation ---
History of Present Illness Consult date: 11/27/19 Requesting physician: AAMIR TYLER Consult reason: chest pain History of present illness: 73-year-old male with known hypertension hyperlipidemia with permanent pacemaker follows in our practice with Dr. debbie duran, who is been having progressive shortness of breath with exertion and some chest pain was relieved with aspirin. Midsternal nonradiating. But shortness of breath up the stairs. Denies any PND orthopnea. Came to the hospital for evaluation. Has negative cardiac enzymes. Stress test revealed no significant ischemia. Echocardiogram revealed normal LV function with no significant regurgitation. Denies any nausea no vomiting no syncope no palpitations. Past History Past Medical History: arthritis, GERD, hypertension, hyperlipidemia Past Surgical History: Other (Pacemaker placement, collar bone surgery) Social history: no significant social history Family history: no significant family history Medications and Allergies Allergies Allergy/AdvReac Type Severity Reaction Status Date / Time No Known Allergies Allergy Verified 02/09/17 11:35 Home Medications Medication Instructions Recorded Confirmed Last Taken Type Amlodipine Besylate 5 mg PO QDAY 02/09/17 02/13/17 02/12/17 History 5 mg HYDROcodone/APAP 5-325 [[place] 1 tab PO TID PRN 02/09/17 02/13/17 02/13/17 10:00 History 5-325 mg TAB] 1 tab Lovastatin [Altoprev] 40 mg PO QPM 02/09/17 02/13/17 02/12/17 History 40 mg lisinopriL [Zestril TAB] 20 mg PO QDAY 02/09/17 02/13/17 02/12/17 History 20 mg traMADoL [Ultram 50 MG tab] 50 mg PO Q6H PRN #10 tablet 02/14/17 Unknown Rx traMADoL [Ultram] 50 mg PO Q6HR PRN #7 tablet 03/10/19 Unknown Rx Active Meds: Active Medications Acetaminophen (Tylenol) 650 mg PO Q4H PRN PRN Reason: Pain MILD(1-3)/Fever >100.5/CANALES Last Admin: 11/27/19 06:27 Dose: 650 mg Documented by: Aspirin (Ecotrin) 325 mg PO QDAY [facility] Heparin Sodium (Porcine) (Heparin) 5,000 unit SUB-Q Q8HR [facility] Last Admin: 11/27/19 06:16 Dose: 5,000 unit Documented by: Magnesium Hydroxide (Milk Of Magnesia) 30 ml PO Q4H PRN PRN Reason: Constipation Morphine Sulfate (Morphine) 2 mg IV Q5MIN PRN PRN Reason: Chest Pain unrelieved by NTG Nitroglycerin (Nitrostat) 0.4 mg SL Q5M PRN PRN Reason: Chest Pain Ondansetron HCl (Zofran) 4 mg IV Q8H PRN PRN Reason: Nausea And Vomiting Sodium Chloride (Sodium Chloride Flush Syringe 10 Ml) 10 ml IV PRN PRN PRN Reason: LINE FLUSH Sodium Chloride (Sodium Chloride Flush Syringe 10 Ml) 10 ml IV BID [facility] Review of Systems All systems: negative (hpi) Physical Examination Vital Signs Pulse Resp BP Pulse Ox 60 18 125/73 97 11/26/19 14:46 11/26/19 14:46 11/26/19 14:46 11/26/19 14:46 General appearance: no acute distress, well-nourished HEENT: Positive: PERRL, Mucus Membranes Moist Neck: Positive: neck supple, trachea midline Cardiac: Positive: Reg Rate and Rhythm, S1/S2. Negative: Audible Murmur Lungs: Positive: clear to auscultation, Normal Breath Sounds Neuro: Positive: Grossly Intact Abdomen: Positive: Soft, Active Bowel Sounds. Negative: Tender, Distended Male genitourinary: Positive: normal Skin: Positive: Clear Incision: Cardiac Cath Site Musculoskeletal: No Pain, Normal Range of Motion Extremities: Present: normal. Absent: edema Results 11/27/19 04:48 11/27/19 04:48 Cardiac Enzymes 11/26/19 Range/Units 20:05 AST 14 (5-40) units/L Coagulation 11/26/19 11/27/19 Range/Units 20:05 04:48 PT 13.8 13.3 (12.2-14.9) Sec. INR 1.08 1.03 (0.87-1.13) APTT 29.5 (24.2-36.6) Sec. CBC 11/26/19 11/26/19 11/27/19 Range/Units 19:56 22:58 04:48 WBC 4.4 L 3.8 L 3.5 L (4.5-11.0) K/mm3 RBC 4.42 4.05 4.16 (3.65-5.03) M/mm3 Hgb 13.1 12.3 12.2 (11.8-15.2) gm/dl Hct 38.2 34.3 L 35.3 L (35.5-45.6) % Plt Count 185 165 171 (140-440) K/mm3 Lymph # 1.6 1.6 1.4 (1.2-5.4) K/mm3 [place] # 0.5 0.4 0.3 (0.0-0.8) K/mm3 Eos # 0.2 0.2 0.1 (0.0-0.4) K/mm3 Baso # 0.0 0.0 0.0 (0.0-0.1) K/mm3 Comprehensive Metabolic Panel 11/26/19 11/26/19 11/26/19 Range/Units 19:56 20:05 22:58 Sodium 140 143 (137-145) mmol/L Potassium 4.5 4.8 (3.6-5.0) mmol/L Chloride 99.4 102.4 (98-107) mmol/L Carbon Dioxide 28 27 (22-30) mmol/L BUN 14 13 (9-20) mg/dL Creatinine 1.0 0.9 (0.8-1.5) mg/dL Glucose 100 103 H (75-100) mg/dL Calcium 9.4 8.9 (8.4-10.2) mg/dL Direct Bilirubin < 0.2 (0-0.2) mg/dL Indirect Bilirubin 0.6 mg/dL AST 14 (5-40) units/L ALT 13 (7-56) units/L Alkaline Phosphatase 69 (35-129) units/L Total Protein 7.0 (6.3-8.2) g/dL Albumin 4.3 (3.9-5) g/dL 11/27/19 Range/Units 04:48 Sodium 142 (137-145) mmol/L Potassium 4.2 (3.6-5.0) mmol/L Chloride 102.0 (98-107) mmol/L Carbon Dioxide 27 (22-30) mmol/L BUN 13 (9-20) mg/dL Creatinine 0.9 (0.8-1.5) mg/dL Glucose 96 (75-100) mg/dL Calcium 9.0 (8.4-10.2) mg/dL Direct Bilirubin (0-0.2) mg/dL Indirect Bilirubin mg/dL AST (5-40) units/L ALT (7-56) units/L Alkaline Phosphatase (35-129) units/L Total Protein (6.3-8.2) g/dL Albumin (3.9-5) g/dL - Imaging and Cardiology Stress echo: report reviewed (Normal myocardial perfusion scan) Echo: report reviewed (Normal LV function) EKG interpretations - Telemetry EKG Rhythm: Paced Assessment and Plan Patient stress test shows no signal ischemia echocardiogram normally function with a second regurgitation patient will have a CT angios chest to rule out PE if negative will follow up with pulmonary as an outpatient with Dr. Stallworth. Discussed this with the patient in detail continue home medications - Patient Problems (1) Hypertension Current Visit: Yes Status: Chronic Qualifiers: Hypertension type: essential hypertension Qualified Code(s): I10 - Essential (primary) hypertension (2) Hyperlipemia, mixed Current Visit: Yes Status: Chronic (3) Chest pain Current Visit: Yes Status: Acute Qualifiers: Chest pain type: unspecified Qualified Code(s): R07.9 - Chest pain, unspecified (4) Shortness of breath Current Visit: Yes Status: Acute (5) Presence of permanent cardiac pacemaker Current Visit: No Status: Chronic
--- NOTE | 2019-11-27 11:18 | Discharge Summary ---
Providers - Providers Date of Admission: 11/26/19 21:43 Date of discharge: 11/27/19 Attending physician: AAMIR TYLER 11/26/19 Consult to Cardiac Rehabilitation [CONS] Routine Reason For Exam: Phase I 11/26/19 22:29 Consult to Cardiology [CONS] Routine Consulting Provider: FLOR MARTINEZ Reason For Exam: chest pain Primary care physician: TYRONE MEJIA MD Hospitalization Condition: Stable Hospital course: 73-year-old male with h/o hypertension hyperlipidemia with permanent pacemaker follows with Dr. debbie martinez, who resented with progressive shortness of breath with exertion and Midsternal nonradiating chest pain. In the ER Has negative cardiac enzymes. Stress test revealed no significant ischemia. Echocardiogram reve aled normal LV function with no significant regurgitation. Chest CTA negative for PE. Patient was evaluated by cardiology and recommended to follow-up outpatient. He was then discharged home in stable condition. Discharge diagnosis: Atypical chest pain, likely due to GERD Hypertension, stable Hyperlipidemia, continue statin Status post permanent pacemaker Lung nodules, 7 millimeter incidental finding -recommended outpatient follow-up Dyspnea on exertion, could be from physical debility -home health on discharge, also recommended outpatient follow-up with pulmonary Disposition: DC-01 TO HOME OR SELFCARE Time spent for discharge: 34 minutes Core Measure Documentation - Palliative Care Palliative Care/ Comfort Measures: Not Applicable - Core Measures Any of the following diagnoses?: none Exam - Physical Exam Narrative exam: General appearance: no acute distress, well-nourished HEENT: Positive: PERRL, Mucus Membranes Moist Neck: Positive: neck supple, trachea midline Cardiac: Positive: Reg Rate and Rhythm, S1/S2. Negative: Audible Murmur Lungs: Positive: clear to auscultation, Normal Breath Sounds Neuro: Positive: Grossly Intact Abdomen: Positive: Soft, Active Bowel Sounds. Negative: Tender, Distended Male genitourinary: Positive: normal Skin: Positive: Clear Incision: Cardiac Cath Site Musculoskeletal: No Pain, Normal Range of Motion Extremities: Present: normal. Absent: edema - Constitutional Vitals: Temp Pulse Resp BP Pulse Ox 98.1 F 60 18 148/78 96 11/27/19 07:16 11/27/19 08:38 11/27/19 07:16 11/27/19 08:38 11/27/19 04:40 Plan Activity: advance as tolerated Weight Bearing Status: Non-Weight Bearing Diet: low fat, low salt Special Instructions: record daily BP diary Follow up with: TYRONE MEJIA MD [Primary Care Provider] - 3-5 Days YESSY BUTT MD [Staff Physician] - 7 Days Prescriptions: Aspirin [Aspirin BABY CHEW TAB] 81 mg PO QDAY #30 tab.chew
[2019-11-27] MEDS ORDERED: FLU VACC QUAD 2019-20 (3 YR UP)/PF 60 MCG/0.5 ML SYRINGE IM ONE (12:00)
[2019-11-27 12:40] VITALS: BP 137/71
--- NOTE | 2019-11-27 12:51 | Cat Scan Report ---
CT angio chest INDICATION / CLINICAL INFORMATION: MAIN: sob suspected pe 100 ML OMNI 350. TECHNIQUE: Precontrast bolus timing images were obtained followed by postcontrast axial and reformatted images. 3-plane MIP reconstructions were performed at an independent workstation by the technologist. All CT scans at this location are performed using CT dose reduction for ALARA by means of automated exposure control. COMPARISON: None available. 05/06/2019 FINDINGS: Enhancement of the pulmonary arteries is normal. No evidence of pulmonary embolus. The ascending thoracic aorta measures 4.3 cm. The descending thoracic aorta is measured at the level the gretta at 3.9 cm. No acute lung disease. A stable 7 mm juxta fissural nodule is identified in the lower portion of the right lower lobe. No acute lung disease. Limited upper abdominal images show no significant abnormalities. Skeletal structures are negative IMPRESSION: 1. No evidence of pulmonary embolus or acute lung disease. 2. Ectatic ascending thoracic aorta. 3. Stable 7 mm right upper lobe juxta fissural nodule. Signer Name: Jacob Lundberg MD Signed: 11/27/2019 12:47 PM Workstation Name: [id number]
[2019-11-27] MEDS ORDERED: HYDROcodone/ACETAMINOPHEN 5-325 MG TAB PO PRN (14:19)
[2019-11-27] MEDS ORDERED: traMADol 50 MG TAB PO PRN (14:19)
--- NOTE | 2019-11-27 15:33 | Treadmill Report ---
CARDIAC NUCLEAR PERFUSION STUDY REASON FOR STUDY: Shortness of breath and chest pain. PRIMARY ADVERTISING JOB TITLES: ____. IMAGING PROTOCOL: Single isotope used documented as single isotope protocol IMAGING RESULTS: Normal cavity size from stress to rest. Normal distribution of radionuclide in the anterior, inferior, septal, lateral and apical regions. Gated SPECT, EF 58% with no wall motion abnormality. The patient infused Lexiscan with no EKG changes. The patient's baseline rhythm is sinus with paced rhythm. SUMMARY: 1. Negative Lexiscan EKG, paced rhythm. 2. Normal rest and stress myocardial perfusion scan. No significant ischemia. No wall motion abnormality. Gated SPECT, EF 58%. JOB# [id number] [place]/NTS
[2019-11-27] MEDS ORDERED: PRAVASTATIN 40 MG TAB PO SCH (18:00)
[2019-11-27] MEDS ORDERED: NON-FORMULARY EACH (Lovastatin [Altoprev] 40 MG) PO SCH (18:00)
[2019-11-28] MEDS ORDERED: amLODIPine 5 MG TAB PO SCH (10:00)
[2019-11-28] MEDS ORDERED: LISINOPRIL 20 MG TAB PO SCH (10:00)
== END 2019-11-27 16:31 | disposition home or self-care (01) ==
LOC: ED 14:40 → IMCU 21:43 → INTOOBSV 21:43 → 4A 23:42
PROVIDERS: ADMIT Internal Medicine Geriatric Medicine; ATTEND Internal Medicine
DX: R07.89 Other chest pain (principal); R06.02 Shortness of breath; R00.1 Bradycardia, unspecified; E78.2 Mixed hyperlipidemia; I10 Essential (primary) hypertension; M19.90 Unspecified osteoarthritis, unspecified site; K21.9 Gastro-esophageal reflux disease without esophagitis; E78.00 Pure hypercholesterolemia, unspecified; Z95.0 Presence of cardiac pacemaker; Z79.4 Long term (current) use of insulin; Z79.899 Other long term (current) drug therapy
CPT/HCPCS: 36415; 71046; 71275; 78452; 80048; 80076; 83880; 84484; 85025; 85610; 85730; 93005; 93017; 93306; 96372; 96374; 96375; 99285; A9270; A9502; G0378; J1644; J2270; J2405; J2785; Q9967; 90686; Q2017

== ENCOUNTER 2020-05-25 09:43 | Emergency (ER) | payer MEDICARE ==
--- NOTE | 2020-05-25 10:26 | XRay Report ---
CHEST 1 VIEW 05/25/2020 9:19 AM INDICATION / CLINICAL INFORMATION: Chest Pain. COMPARISON: 11/26/2019 FINDINGS: SUPPORT DEVICES: Pacemaker unchanged. HEART / MEDIASTINUM: No significant abnormality. LUNGS / PLEURA: No significant pulmonary or pleural abnormality. No pneumothorax. ADDITIONAL FINDINGS: No significant additional findings. IMPRESSION: No acute abnormality. Signer Name: Cornell Bolaños MD Signed: 05/25/2020 10:22 AM Workstation Name: [id number]
[2020-05-25] MEDS ORDERED: NITROGLYCERIN 0.4 MG TAB SUBL SL ONE ×2 (10:35→10:36)
[2020-05-25] MEDS ORDERED: traMADol 50 MG TAB PO ONE (10:42)
--- NOTE | 2020-05-25 10:42 | Emergency Department Report ---
ED Chest Pain HPI - General Chief Complaint: Chest Pain Stated Complaint: CHEST PAIN PUI?: No Time Seen by Provider: 05/25/20 10:34 Source: patient Mode of arrival: Ambulatory Limitations: Other - History of Present Illness Initial Comments: Chief complaint: "My chest is hurting really bad. I hope it is just my pacemaker." HPI: This is a 74-year-old male with history of hypertension, hyperlipidemia, pacemaker who presents with several nights of chest pain. He feels with the pain in his left chest. Pain is now radiating to his left shoulder arm. He has had chest pains on some occasions he has had similar episodes of chest pain. However arm involvement is new. He denies shortness of breath, cough, fever. No sick contacts. He lives with his and grandchildren. He is followed by iv rn Dr. Sandy. Pain has been persistent since 430 this morning. No association with exertion. According to electronic record patient was evaluated for chest pain in October of this year, CT angiogram negative for pulmonary embolism. Myocardial perfusion scan negative for ischemia. MD Complaint: chest pain -: Gradual, days(s) (Several days persistent since 4:30 AM) Onset: during rest Pain Location: left chest Pain Radiation: LUE Severity: moderate Severity scale (0 -10): 7 Quality: dull Consistency: constant Improves With: nothing Worsens With: nothing re: denies: nausea, vomting, dyspnea, sense of impending doom Other Symptoms: denies: cough, fever, syncope - Related Data Home Medications Medication Instructions Recorded Confirmed Last Taken Amlodipine Besylate 5 mg PO QDAY 02/09/17 02/13/17 02/12/17 5 mg HYDROcodone/APAP 5-325 [[place] 1 tab PO TID PRN 02/09/17 02/13/17 02/13/17 10:00 5-325 mg TAB] 1 tab Lovastatin [Altoprev] 40 mg PO QPM 02/09/17 02/13/17 02/12/17 40 mg lisinopriL [Zestril TAB] 20 mg PO QDAY 02/09/17 02/13/17 02/12/17 20 mg Previous Rx's Medication Instructions Recorded Last Taken Type traMADoL [Ultram 50 MG tab] 50 mg PO Q6H PRN #10 tablet 02/14/17 Unknown Rx Aspirin [Aspirin BABY CHEW TAB] 81 mg PO QDAY #30 tab.chew 11/27/19 Unknown Rx Allergies Allergy/AdvReac Type Severity Reaction Status Date / Time No Known Allergies Allergy Verified 02/09/17 11:35 Heart Score - HEART Score History: Slightly suspicious EKG: Normal Age: > 65 Risk factors: 1-2 risk factors Troponin: < normal limit HEART Score: 3 ED Review of Systems ROS: Stated complaint: CHEST PAIN Other details as noted in HPI ED Past Medical Hx - Past Medical History Previous Medical History?: Yes Hx Hypertension: Yes Hx Heart Attack/AMI: No Hx Congestive Heart Failure: No Hx Diabetes: No Hx GERD: Yes Hx Arthritis: Yes Additional medical history: High cholesterol, pacemaker, hearing loss with bilateral hearing aids - Surgical History Hx Pacemaker: Yes Additional Surgical History: collar bone, pace maker placement - Social History Smoking Status: Never Smoker Substance Use Type: None - Medications Home Medications: Home Medications Medication Instructions Recorded Confirmed Last Taken Type Amlodipine Besylate 5 mg PO QDAY 02/09/17 02/13/17 02/12/17 History 5 mg HYDROcodone/APAP 5-325 [[place] 1 tab PO TID PRN 02/09/17 02/13/17 02/13/17 10:00 History 5-325 mg TAB] 1 tab Lovastatin [Altoprev] 40 mg PO QPM 02/09/17 02/13/17 02/12/17 History 40 mg lisinopriL [Zestril TAB] 20 mg PO QDAY 02/09/17 02/13/17 02/12/17 History 20 mg traMADoL [Ultram 50 MG tab] 50 mg PO Q6H PRN #10 tablet 02/14/17 Unknown Rx Aspirin [Aspirin BABY CHEW TAB] 81 mg PO QDAY #30 tab.chew 11/27/19 Unknown Rx ED Physical Exam - General Limitations: No Limitations General appearance: alert, in no apparent distress - Head Head exam: Present: atraumatic, normocephalic - Eye Eye exam: Present: normal appearance - ENT ENT exam: Present: mucous membranes moist - Neck Neck exam: Present: normal inspection, full ROM - Respiratory Respiratory exam: Present: normal lung sounds bilaterally. Absent: respiratory distress, wheezes, rales, rhonchi - Cardiovascular Cardiovascular Exam: Present: regular rate, normal rhythm, normal heart sounds. Absent: systolic murmur, diastolic murmur, rubs, gallop - GI/Abdominal GI/Abdominal exam: Present: soft, normal bowel sounds. Absent: distended, tenderness, guarding, rebound - Rectal Rectal exam: Present: deferred - Extremities Exam Extremities exam: Present: normal inspection - Neurological Exam Neurological exam: Present: alert, oriented X3 - Psychiatric Psychiatric exam: Present: normal affect, normal mood - Skin Skin exam: Present: warm, dry, intact, normal color. Absent: rash - Other Other exam information: Left shoulder: Old surgical scar ED Course Vital Signs 05/25/20 05/25/20 05/25/20 09:44 10:28 10:30 Temperature 97.8 F Pulse Rate 72 Respiratory 18 Rate Blood Pressure 155/98 126/69 O2 Sat by Pulse 97 95 86 Oximetry 05/25/20 05/25/20 05/25/20 10:38 10:46 11:06 Temperature Pulse Rate 68 59 L 53 L Respiratory 8 L 11 L Rate Blood Pressure 120/69 120/69 O2 Sat by Pulse 93 93 Oximetry 05/25/20 05/25/20 05/25/20 11:15 11:30 11:45 Temperature Pulse Rate 50 L 52 L 50 L Respiratory 12 8 L 9 L Rate Blood Pressure 96/58 109/60 98/56 O2 Sat by Pulse 94 94 95 Oximetry 05/25/20 12:00 Temperature Pulse Rate 50 L Respiratory 9 L Rate Blood Pressure 109/60 O2 Sat by Pulse 97 Oximetry ED Medical Decision Making - Lab Data Result diagrams: 05/25/20 10:45 05/25/20 10:45 Laboratory Results - last 24 hr 05/25/20 05/25/20 05/25/20 10:45 10:45 12:31 WBC 4.1 L RBC 4.33 Hgb 13.3 Hct 37.5 MCV 87 MCH 31 MCHC 36 H RDW 13.3 Plt Count 183 Lymph % (Auto) 24.5 [place] % (Auto) 8.2 H Eos % (Auto) 2.0 Baso % (Auto) 0.6 Lymph # (Auto) 1.0 L [place] # (Auto) 0.3 Eos # (Auto) 0.1 Baso # (Auto) 0.0 Seg Neutrophils % 64.7 Seg Neutrophils # 2.6 Sodium 138 Potassium 4.0 Chloride 103.6 Carbon Dioxide 25 Anion Gap 13 BUN 14 Creatinine 0.9 Estimated GFR > 60 BUN/Creatinine Ratio 16 Glucose 99 Calcium 9.4 Troponin T < 0.010 < 0.010 - EKG Data 05/25/20 10:40 EKG obtained at 947 EKG interpreted by id Ventricular pacing left axis deviation no ST elevation no ischemic T wave bartlett ges no ST depression - Radiology Data Radiology results: report reviewed, image reviewed CHEST 1 VIEW 05/25/2020 9:19 AM INDICATION / CLINICAL INFORMATION: Chest Pain. COMPARISON: 11/26/2019 FINDINGS: SUPPORT DEVICES: Pacemaker unchanged. HEART / MEDIASTINUM: No significant abnormality. LUNGS / PLEURA: No significant pulmonary or pleural abnormality. No pneumothorax. ADDITIONAL FINDINGS: No significant additional findings. IMPRESSION: No acute abnormality - Medical Decision Making Mr. Davis is a 74-year-old male with history of hypertension hyperlipidemia pacemaker in place. No history of coronary artery disease. No history of [place]. Chest pain is atypical. Nonexertional and persistent. Patient received recent inpatient cardiac evaluation 6 months prior. Heart score 3. Troponin x 2 negative. Patient is pain-free after 1 tablet of nitroglycerin and tramadol. He states that he feels "much better". Patient will follow up with his iv rn next available appointment. Patient does not need further restratification at this time regarding cardiac disease. I do not detect emergent cause of chest pain such as pulmonary embolism, ACS, aortic dissection. Vital Signs - 24 hr 05/25/20 05/25/20 05/25/20 09:44 10:28 10:30 Temperature 97.8 F Pulse Rate 72 Respiratory 18 Rate Blood Pressure 155/98 126/69 O2 Sat by Pulse 97 95 86 Oximetry 05/25/20 05/25/20 05/25/20 10:38 10:46 11:06 Temperature Pulse Rate 68 59 L 53 L Respiratory 8 L 11 L Rate Blood Pressure 120/69 120/69 O2 Sat by Pulse 93 93 Oximetry 05/25/20 05/25/20 05/25/20 11:15 11:30 11:45 Temperature Pulse Rate 50 L 52 L 50 L Respiratory 12 8 L 9 L Rate Blood Pressure 96/58 109/60 98/56 O2 Sat by Pulse 94 94 95 Oximetry 05/25/20 12:00 Temperature Pulse Rate 50 L Respiratory 9 L Rate Blood Pressure 109/60 O2 Sat by Pulse 97 Oximetry Critical care attestation.: If time is entered above; I have spent that time in minutes in the direct care of this critically ill patient, excluding procedure time. ED Disposition Clinical Impression: Chest pain, Presence of permanent cardiac pacemaker Disposition: TO HOME OR SELFCARE Is pt being admited?: No Does the pt Need Aspirin: No Condition: Stable Instructions: Chest Pain (ED), Nonspecific Chest Pain, Adult, [id number] Referrals: BELLE SANDY MD [Staff Physician] - 3-5 Days
[2020-05-25 11:18] LABS: Basophils % (Auto) 0.6 % (0.0-1.8); Eosinophils # (Auto) 0.1 K/mm3 (0.0-0.4); Hematocrit 37.5 % (35.5-45.6); Hemoglobin 13.3 gm/dl (11.8-15.2); Lymphocytes % (Auto) 24.5 % (13.4-35.0); Mean Corpuscular HGB Conc 36 % (32-34); Mean Corpuscular Volume 87 fl (84-94); Monocytes # (Auto) 0.3 K/mm3 (0.0-0.8); Monocytes % (Auto) 8.2 % (0.0-7.3); Platelet Count 183 K/mm3 (140-440); Red Blood Count 4.33 M/mm3 (3.65-5.03); Red Cell Distribution Width 13.3 % (13.2-15.2)
[2020-05-25 11:28] LABS: BUN/Creatinine Ratio 16; Blood Urea Nitrogen 14 mg/dL (9-20); Calcium 9.4 mg/dL (8.4-10.2); Hemolysis Index 6
[2020-05-25 13:20] VITALS: BP 126/95
== END 2020-05-25 13:20 | disposition home or self-care (01) ==
LOC: ED 09:43
DX: R07.9 Chest pain, unspecified (principal); I10 Essential (primary) hypertension; K21.9 Gastro-esophageal reflux disease without esophagitis; E78.00 Pure hypercholesterolemia, unspecified; M19.90 Unspecified osteoarthritis, unspecified site; E78.5 Hyperlipidemia, unspecified; Z95.0 Presence of cardiac pacemaker; Z98.890 Other specified postprocedural states; Z79.899 Other long term (current) drug therapy
CPT/HCPCS: 36415; 71045; 80048; 84484; 85025; 93005

== ENCOUNTER 2021-05-03 07:00 | Observation (INO) | payer MEDICARE ==
--- NOTE | 2021-05-03 07:47 | Emergency Department Report ---
HPI - General Chief Complaint: Neuro Symptoms/Deficit Time Seen by Provider: 05/03/21 07:23 - HPI HPI: 75-year-old male presents to the emergency department with complaint of some numbness and/or paresthesias to the left side of the face, left arm and left leg. He says that this occurred intermittently multiple times last week and then went away. He says that it started again around 4 AM this morning and has been going on since. He complains of generalized weakness, but denies focal or lateralizing left-sided weakness. He denies any headache, vision change, slurred speech, chest pain, fever. Patient has a past medical history of a p acemaker, hypertension, hyperlipidemia. He has not taken anything for symptoms prior to presentation today. ED Past Medical Hx - Past Medical History Hx Hypertension: Yes Hx Heart Attack/AMI: No Hx Congestive Heart Failure: No Hx Diabetes: No Hx GERD: Yes Hx Arthritis: Yes Additional medical history: High cholesterol, pacemaker, hearing loss with bilateral hearing aids - Surgical History Hx Pacemaker: Yes Additional Surgical History: collar bone, pace maker placement - Social History Smoking Status: Never Smoker Substance Use Type: None - Medications Home Medications: Home Medications Medication Instructions Recorded Confirmed Last Taken Type Amlodipine Besylate 5 mg PO QDAY 02/09/17 02/13/17 02/12/17 History 5 mg HYDROcodone/APAP 5-325 [[place] 1 tab PO TID PRN 02/09/17 02/13/17 02/13/17 10:00 History 5-325 mg TAB] 1 tab Lovastatin [Altoprev] 40 mg PO QPM 02/09/17 02/13/17 02/12/17 History 40 mg lisinopriL [Zestril TAB] 20 mg PO QDAY 02/09/17 02/13/17 02/12/17 History 20 mg traMADoL [Ultram 50 MG tab] 50 mg PO Q6H PRN #10 tablet 02/14/17 Unknown Rx Aspirin [Aspirin BABY CHEW TAB] 81 mg PO QDAY #30 tab.chew 11/27/19 Unknown Rx ED Review of Systems ROS: Stated complaint: RT SIDE NUMBNESS Other details as noted in HPI Comment: All other systems reviewed and negative Constitutional: weakness. denies: chills, fever Eyes: denies: eye pain, vision change ENT: denies: ear pain, throat pain Respiratory: denies: cough, shortness of breath Cardiovascular: denies: chest pain, palpitations Gastrointestinal: denies: abdominal pain, vomiting Genitourinary: denies: dysuria, discharge Musculoskeletal: denies: back pain, arthralgia Skin: denies: rash, lesions Neurological: numbness, paresthesias. denies: headache Physical Exam - Physical Exam Vital Signs: Vital Signs 05/03/21 07:03 Temperature 98 F Pulse Rate 72 Respiratory 20 Rate Blood Pressure 160/92 [Left] O2 Sat by Pulse 97 Oximetry Physical Exam: GENERAL: The patient is well-developed well-nourished. HENT: Normocephalic. Atraumatic. Patient has moist mucous membranes. EYES: Extraocular motions are intact. No nystagmus. NECK: Supple. Trachea is midline. CHEST/LUNGS: Clear to auscultation. There is no respiratory distress noted. HEART/CARDIOVASCULAR: Regular. There is no tachycardia. There is no murmur. ABDOMEN: Abdomen is soft, nontender. Patient has normal bowel sounds. There is no abdominal distention. SKIN: Skin is warm and dry. NEURO: The patient is awake, alert, and oriented. The patient is cooperative. Subjective decreased sensation to the left side of the face, arm and leg when compared to the right. No facial asymmetry. No pronator drift or dysmetria. Normal speech. MUSCULOSKELETAL: There is no tenderness or deformity. There is no limitation range of motion. ED Course Vital Signs 05/03/21 07:03 Temperature 98 F Pulse Rate 72 Respiratory 20 Rate Blood Pressure 160/92 [Left] O2 Sat by Pulse 97 Oximetry - Consultations Consultation #1: 05/03/21 08:20 The patient was seen by the telemedicine neurologist, Dr. Melendez, who feels that the symptoms are more subacute and the patient does not require any TPA. He agrees with the plan for CT angiography and recommends admission to the hospital for MRI of the head and cervical spine and further evaluation. His full recommendations will be placed in the chart. ED Medical Decision Making - Lab Data Result diagrams: 05/03/21 07:31 05/03/21 07:31 Lab Results 05/03/21 05/03/21 05/03/21 Range/Units 07:18 07:31 07:31 WBC 4.2 L (4.5-11.0) K/mm3 RBC 4.25 (3.65-5.03) M/mm3 Hgb 12.8 (11.8-15.2) gm/dl Hct 36.6 (35.5-45.6) % MCV 86 (84-94) fl MCH 30 (28-32) pg MCHC 35 H (32-34) % RDW 13.0 L (13.2-15.2) % Plt Count 169 (140-440) K/mm3 Lymph % (Auto) 26.7 (13.4-35.0) % [place] % (Auto) 7.5 H (0.0-7.3) % Eos % (Auto) 1.8 (0.0-4.3) % Baso % (Auto) 0.6 (0.0-1.8) % Lymph # (Auto) 1.1 L (1.2-5.4) K/mm3 [place] # (Auto) 0.3 (0.0-0.8) K/mm3 Eos # (Auto) 0.1 (0.0-0.4) K/mm3 Baso # (Auto) 0.0 (0.0-0.1) K/mm3 Seg Neutrophils % 63.4 (40.0-70.0) % Seg Neutrophils # 2.7 (1.8-7.7) K/mm3 PT 13.8 (12.2-14.9) Sec. INR 0.96 (0.87-1.13) APTT 28.9 (24.2-36.6) Sec. Thrombin Time 16.9 (15.1-19.6) Sec. Sodium (137-145) mmol/L Potassium (3.6-5.0) mmol/L Chloride (98-107) mmol/L Carbon Dioxide (22-30) mmol/L Anion Gap mmol/L BUN (9-20) mg/dL Creatinine (0.8-1.3) mg/dL Estimated GFR ml/min BUN/Creatinine Ratio % Glucose (75-100) mg/dL POC Glucose 111 H (70-105) mg/dL Calcium (8.4-10.2) mg/dL Troponin T (0.00-0.029) ng/mL TSH (0.270-4.200) mlU/mL 05/03/21 05/03/21 Range/Units 07:31 08:12 WBC (4.5-11.0) K/mm3 RBC (3.65-5.03) M/mm3 Hgb (11.8-15.2) gm/dl Hct (35.5-45.6) % MCV (84-94) fl MCH (28-32) pg MCHC (32-34) % RDW (13.2-15.2) % Plt Count (140-440) K/mm3 Lymph % (Auto) (13.4-35.0) % [place] % (Auto) (0.0-7.3) % Eos % (Auto) (0.0-4.3) % Baso % (Auto) (0.0-1.8) % Lymph # (Auto) (1.2-5.4) K/mm3 [place] # (Auto) (0.0-0.8) K/mm3 Eos # (Auto) (0.0-0.4) K/mm3 Baso # (Auto) (0.0-0.1) K/mm3 Seg Neutrophils % (40.0-70.0) % Seg Neutrophils # (1.8-7.7) K/mm3 PT (12.2-14.9) Sec. INR (0.87-1.13) APTT (24.2-36.6) Sec. Thrombin Time (15.1-19.6) Sec. Sodium 141 (137-145) mmol/L Potassium 4.7 (3.6-5.0) mmol/L Chloride 103.6 (98-107) mmol/L Carbon Dioxide 26 (22-30) mmol/L Anion Gap 16 mmol/L BUN 10 (9-20) mg/dL Creatinine 1.0 (0.8-1.3) mg/dL Estimated GFR > 60 ml/min BUN/Creatinine Ratio 10 % Glucose 102 H (75-100) mg/dL POC Glucose (70-105) mg/dL Calcium 9.3 (8.4-10.2) mg/dL Troponin T < 0.010 (0.00-0.029) ng/mL TSH 0.857 (0.270-4.200) mlU/mL - EKG Data -: EKG Interpreted by Me - EKG Data Interpretation: other (Atrial paced at a rate of 62 bpm, normal axis, normal intervals. No ST elevation [place]) - Radiology Data Radiology results: report reviewed CT HEAD WITHOUT CONTRAST INDICATION / CLINICAL INFORMATION: CODE STROKE CALL [phone]. TECHNIQUE: Axial imaging performed from the skull apex through the skull base without the use of contrast. Sagittal and coronal reformatted images. All CT scans at this location are performed using CT dose reduction for ALARA by means of automated exposure control. COMPARISON: 05/06/2019 FINDINGS: CEREBRAL PARENCHYMA: No acute parenchymal abnormality is detected. There is moderate volume loss and chronic periventricular white matter changes which appear stable since the comparison exam. No chronic infarct. HEMORRHAGE: None. EXTRA-AXIAL SPACES: Normal in size and morphology for the patient's age. VENTRI CULAR SYSTEM: Normal in size and morphology for the patient's age. MIDLINE SHIFT OR HERNIATION: None. CEREBELLUM / BRAINSTEM: No significant abnormality. CALVARIUM: No significant abnormality. ORBITS: Normal as visualized. PARANASAL SINUSES / MASTOID AIR CELLS: Normal as visualized. SOFT TISSUES of HEAD: No significant abnormality. ADDITIONAL FINDINGS: None. IMPRESSION: No acute intracranial abnormality. Age-related changes. No significant change since 05/06/2019. - Medical Decision Making This patient presents to the emergency department with a complaint of some numbness or paresthesias down the left side of his face and body. He was experiencing some last week but it started again around 4 AM. For this reason a code stroke was initiated. He was seen by the telemedicine neurologist who gave the patient an NIH stroke scale of 1. The patient had a negative CT of the head without contrast, as well as CT angiography of the head and neck. Neurolo gy recommendation is for admission for MRI of the brain and cervical spine and further evaluation. Labs have been mostly unremarkable including CBC, metabolic panel, normal thyroid function. Vital signs reassuring including being afebrile. The patient was accepted for admission by the hospitalist service. Critical Care Time: No Critical care attestation.: If time is entered above; I have spent that time in minutes in the direct care of this critically ill patient, excluding procedure time. ED Disposition Clinical Impression: Left sided numbness CVA (cerebral vascular accident) Qualifiers: CVA mechanism: unspecified Qualified Code(s): I63.9 - Cerebral infarction, unspecified Hypertension Qualifiers: Hypertension type: primary hypertension Qualified Code(s): I10 - Essential (primary) hypertension Disposition: 09 ADMITTED INPATIENT Is pt being admited?: Yes Condition: Fair Time of Disposition: 08:53
--- NOTE | 2021-05-03 08:00 | Consultation ---
Medications and Allergies Allergies Allergy/AdvReac Type Severity Reaction Status Date / Time No Known Allergies Allergy Verified 05/03/21 07:05 Home Medications Medication Instructions Recorded Confirmed Last Taken Type Amlodipine Besylate 5 mg PO QDAY 02/09/17 02/13/17 02/12/17 History 5 mg HYDROcodone/APAP 5-325 [[place] 1 tab PO TID PRN 02/09/17 02/13/17 02/13/17 10:00 History 5-325 mg TAB] 1 tab Lovastatin [Altoprev] 40 mg PO QPM 02/09/17 02/13/17 02/12/17 History 40 mg lisinopriL [Zestril TAB] 20 mg PO QDAY 02/09/17 02/13/17 02/12/17 History 20 mg traMADoL [Ultram 50 MG tab] 50 mg PO Q6H PRN #10 tablet 02/14/17 Unknown Rx Aspirin [Aspirin BABY CHEW TAB] 81 mg PO QDAY #30 tab.chew 11/27/19 Unknown Rx Physical Examination - Vital Signs Vital Signs: Vital Signs Temp Pulse Resp BP Pulse Ox 98 F 72 20 160/92 97 05/03/21 07:03 05/03/21 07:03 05/03/21 07:03 05/03/21 07:03 05/03/21 07:03 Results - Laboratory Findings Abnormal Lab Findings: Abnormal Labs 05/03/21 07:18 POC Glucose 111 H Assessment and Plan [employer] [facility] Consult Note # Demographics Consult Type: Acute Stroke Level 2 (4.5-24 hrs) Patient Location: Emergency Room First Name: Gamal Last Name: Ryan Date of : 1945 Age: 75 Gender: Male Facility: [facility] Time of Initial Page ( Time): 05/03/2021, 07:46 Time of Return Call ( Time): 05/03/2021, 07:46 # HPI History: 75-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 He has been having an abnormal sensation on the left face arm and leg for many weeks now, worsening over the past 2 to 3 weeks he reports, making it difficult for him to walk. Stroke alert was activated. # Scores Time of exam and NIHSS (): 05/03/2021, 07:55 Level of Consciousness 1a: [0] = Alert; keenly responsive LOC Questions 1b: [0] = Answers both questions correctly LOC Commands 1c: [0] = Performs both tasks correctly Best Gaze 2: [0] = Normal Visual 3: [0] = No visual loss Facial Palsy 4: [0] = Normal symmetrical movements Motor Arm Left 5a: [0] = No drift Motor Arm Right 5b: [0] = No drift Motor Leg Left 6a: [0] = No drift Motor Leg Right 6b: [0] = No drift Limb Ataxia 7: [0] = Absent Sensory 8: [1] = Hkyi-vq-nweetcos sensory loss Best Language 9: [0] = No aphasia Dysarthria 10: [0] = Normal Extinction and Inattention 11: [0] = No abnormality NIHSS Total: 1 # Data Time Head CT personally read by me (Eastern Time): 05/03/2021, 07:[address]: no bleed preliminarily reviewed by me, please refer to radiology read for official reading # Assessment Impression: Other Left side sensory disturbance. Could localize to brain or upper C-spine. # Plan Thrombolytic/Intervention: NOT IV Thrombolysis or IA Intervention candidate Thrombolytic Exclusion (< 3 hour window): time of onset unclear Thrombolytic Exclusion: > 4.5 hours Intraarterial Exclusion: clinically consistent with small vessel disease Imaging: (urgency: routine): CT Angiogram Head and CT Angiogram Neck MRI Brain without contrast MRI C spine Diagnostic Test: echo without bubble study Medication: aspirin 81 mg daily Other: telemetry monitoring I have discussed my recommendations with the referring provider Disposition: admit # Logistics Telemedicine: Interactive 2 way audio and visual telecommunication technology was utilized during this visit
--- NOTE | 2021-05-03 08:10 | Cat Scan Report ---
CT HEAD WITHOUT CONTRAST INDICATION / CLINICAL INFORMATION: CODE STROKE CALL [phone]. TECHNIQUE: Axial imaging performed from the skull apex through the skull base without the use of cont rast. Sagittal and coronal reformatted images. All CT scans at this location are performed using CT dose reduction for ALARA by means of automated exposure control. COMPARISON: 05/06/2019 FINDINGS: CEREBRAL PARENCHYMA: No acute parenchymal abnormality is detected. There is moderate volume loss and chronic periventricular white matter changes which appear stable since the comparison exam. No chroni c infarct. HEMORRHAGE: None. EXTRA-AXIAL SPACES: Normal in size and morphology for the patient's age. VENTRICULAR SYSTEM: Normal in size and morphology for the patient's age. MIDLINE SHIFT OR HERNIATION: None. CEREBELLUM / BRAINSTEM: No significant abnormality. CALVARIUM: No significant abnormality. ORBITS: Normal as visualized. PARANASAL SINUSES / MASTOID AIR CELLS: Normal as visualized. SOFT TISSUES of HEAD: No significant abnormality. ADDITIONAL FINDINGS: None. IMPRESSION: No acute intracranial abnormality. Age-related changes. No significant change since 05/06/2019. CODE STROKE: Time of Communication (SAILING OFFICER/CDT): 0703 hours Licensed Practitioner Receiving Report: Dr. Joseph Signer Name: Jostin Huerta Jr, MD Signed: 05/03/2021 8:06 AM Workstation Name: [id number]
[2021-05-03 08:11] LABS: Basophils % (Auto) 0.6 % (0.0-1.8); Eosinophils # (Auto) 0.1 K/mm3 (0.0-0.4); Eosinophils % (Auto) 1.8 % (0.0-4.3); Hematocrit 36.6 % (35.5-45.6); Hemoglobin 12.8 gm/dl (11.8-15.2); Lymphocytes # (Auto) 1.1 K/mm3 (1.2-5.4); Lymphocytes % (Auto) 26.7 % (13.4-35.0); Mean Corpuscular HGB Conc 35 % (32-34); Mean Corpuscular Volume 86 fl (84-94); Monocytes # (Auto) 0.3 K/mm3 (0.0-0.8); Monocytes % (Auto) 7.5 % (0.0-7.3); Platelet Count 169 K/mm3 (140-440); Red Blood Count 4.25 M/mm3 (3.65-5.03)
[2021-05-03 08:28] LABS: BUN/Creatinine Ratio 10; Blood Urea Nitrogen 10 mg/dL (9-20); Calcium 9.3 mg/dL (8.4-10.2); Hemolysis Index 5
[2021-05-03 08:36] LABS: INR 0.96 (0.87-1.13)
[2021-05-03 08:37] LABS: Partial Thromboplastin Time 28.9 Sec. (24.2-36.6); Thrombin Time 16.9 Sec. (15.1-19.6)
--- NOTE | 2021-05-03 08:40 | Cat Scan Report ---
4 CTA NECK WITH CONTRAST HISTORY: "Stroke COMPARISON: None. TECHNIQUE: Routine CTA of the neck was performed. 3-D/MIP reformats were postprocessed. Percentage s tenosis is determined by direct quantitative measurements of diseased internal carotid artery diamete r compared with normal distal internal carotid artery reference segments or by criteria similar to NA SCET where applicable.All CT scans at this location are performed using CT dose reduction for ALARA b y means of automated exposure control CONTRAST: 100 ml of Omnipaque 350 FINDINGS: Aortic arch: No significant abnormality. Cervical vertebral arteries: No significant abnormality. Common carotid arteries: No significant abnormality. Carotid bifurcations: Normal Cervical internal carotid arteries: No significant abnormality. Additional findings: None. IMPRESSION: 1. No significant abnormality. Signer Name: Idalia Adrian MD Signed: 05/03/2021 8:36 AM Workstation Name: [id number]
--- NOTE | 2021-05-03 08:46 | Cat Scan Report ---
CTA HEAD WITH CONTRAST HISTORY: Stroke COMPARISON: None. TECHNIQUE: Routine non-contrast CT Head, CTA of the head and post-contrast CT Head are performed. 3-D /MIP reformats postprocessed. All CT scans at this location are performed using CT dose reduction for ALARA by means of automated exposure control CONTRAST: 100 ml of Omnipaque 350 FINDINGS: CTA Head: Intracranial vertebral arteries: Tortuous right vertebral artery continues as basilar artery; left ve rtebral artery ends in PICA Basilar artery: No significant abnormality. Posterior cerebral arteries: No significant abnormality. Intracranial internal carotid arteries: No significant abnormality. Anterior cerebral arteries: No significant abnormality. Middle cerebral arteries: No significant abnormality. Dural venous sinuses:Not optimally opacified. No significant abnormality. Additional findings: None. IMPRESSION: 1. No significant abnormality. CODE STROKE: Time of Communication (AERIAL GUNNER/CDT): 7:40 AM Licensed Practitioner Receiving Report: ER physician Signer Name: Idalia Adrian MD Signed: 05/03/2021 8:42 AM Workstation Name: [id number]
--- NOTE | 2021-05-03 08:54 | History and Physical Report ---
History of Present Illness Date of examination: 05/03/21 Date of admission: 05/03/2021 Chief complaint: Left-sided weakness History of present illness: HPI: 75-year-old male with past medical history of chronic back pain presenting for complaint of new onset left facial, left arm, left leg numbness for the last month. Numbness and tingling appears to be worse over the past 2 to 3 weeks making it increasingly difficult for patient to walk. Patient states that the numbness associated with weakness. He denies any visual changes, dizziness, difficulty swallowing. He has no aggravating or relieving factors. He denies any temporal changes for his numbness. He denies any changes to his symptoms when he is either seated or standing. He does endorse lower back pain that is been chronic for some time. He has been told he has arthritis in the past by his primary care doctors. Remainder of ROS negative except for stated above ED Course: Stroke alert, neurology consulted no TPA administered. PMHx: Arthritis, hyperlipidemia, pacemaker for unspecified arrhythmia, hearing loss with hearing aid PSHx: Collarbone fracture, pacemaker placement FHx: Reviewed noncontributory SHx: Tobacco use-never smoker ETOH Use-denies Recreational Drug Use-denies Pain management doctor: Dr. Ferrer located in [place] Past History Past Medical History: hyperlipidemia Social history: no significant social history Family history: no significant family history Medications and Allergies Allergies Allergy/AdvReac Type Severity Reaction Status Date / Time No Known Allergies Allergy Verified 05/03/21 07:05 Home Medications Medication Instructions Recorded Confirmed Last Taken Type Amlodipine Besylate 5 mg PO QDAY 02/09/17 02/13/17 02/12/17 History 5 mg HYDROcodone/APAP 5-325 [[place] 1 tab PO TID PRN 02/09/17 02/13/17 02/13/17 10:00 History 5-325 mg TAB] 1 tab Lovastatin [Altoprev] 40 mg PO QPM 02/09/17 02/13/17 02/12/17 History 40 mg lisinopriL [Zestril TAB] 20 mg PO QDAY 02/09/17 02/13/17 02/12/17 History 20 mg traMADoL [Ultram 50 MG tab] 50 mg PO Q6H PRN #10 tablet 02/14/17 Unknown Rx Aspirin [Aspirin BABY CHEW TAB] 81 mg PO QDAY #30 tab.chew 11/27/19 Unknown Rx Review of Systems All systems: negative Musculoskeletal: arm numbness/tingling, leg numbness/tingling Neurological: parathesias, numbness, tingling Exam - Physical Exam Narrative exam: Physical Exam: VITAL SIGNS: Reviewed. GENERAL: The patient appears normally developed, Vital signs as documented. HEAD: No signs of head trauma. EYES: Pupils are equal. Extraocular motions intact. EARS: Hearing grossly intact. MOUTH: Oropharynx is normal. NECK: No adenopathy, no JVD. CHEST: Chest with clear breath sounds bilaterally. No wheezes, rales, or rhonchi. CARDIAC: Regular rate and rhythm. S1 and S2, without murmurs, gallops, or rubs. VASCULAR: No Edema. Peripheral pulses normal and equal in all extremities. ABDOMEN: Soft, non tender and non distended. No rebound or guarding, and no masses palpated. Bowel Sounds normal. MUSCULOSKELETAL: Good range of motion of all major joints. Extremities without clubbing, cyanosis or edema. NEUROLOGIC EXAM: Alert and oriented x 4. no focal sensory or strength deficits. PSYCHIATRIC: Mood normal. SKIN: detail exam as documented in skin assessment - Constitutional Vitals: Temp Pulse Resp BP Pulse Ox 98 F 72 20 160/92 99 05/03/21 07:03 05/03/21 07:03 05/03/21 07:03 05/03/21 07:03 05/03/21 08:13 HEART Score - HEART Score Troponin: Troponin T < 0.010 ng/mL (0.00-0.029) 05/03/21 07:31 Results - Labs CBC & Chem 7: 05/03/21 07:31 05/03/21 07:31 Labs: Laboratory Last Values WBC 4.2 K/mm3 (4.5-11.0) L 05/03/21 07:31 RBC 4.25 M/mm3 (3.65-5.03) 05/03/21 07:31 Hgb 12.8 gm/dl (11.8-15.2) 05/03/21 07:31 Hct 36.6 % (35.5-45.6) 05/03/21 07:31 MCV 86 fl (84-94) 05/03/21 07:31 MCH 30 pg (28-32) 05/03/21 07:31 MCHC 35 % (32-34) H 05/03/21 07:31 RDW 13.0 % (13.2-15.2) L 05/03/21 07:31 Plt Count 169 K/mm3 (140-440) 05/03/21 07:31 Lymph % (Auto) 26.7 % (13.4-35.0) 05/03/21 07:31 [place] % (Auto) 7.5 % (0.0-7.3) H 05/03/21 07:31 Eos % (Auto) 1.8 % (0.0-4.3) 05/03/21 07:31 Baso % (Auto) 0.6 % (0.0-1.8) 05/03/21 07:31 Lymph # (Auto) 1.1 K/mm3 (1.2-5.4) L 05/03/21 07:31 [place] # (Auto) 0.3 K/mm3 (0.0-0.8) 05/03/21 07:31 Eos # (Auto) 0.1 K/mm3 (0.0-0.4) 05/03/21 07:31 Baso # (Auto) 0.0 K/mm3 (0.0-0.1) 05/03/21 07:31 Seg Neutrophils % 63.4 % (40.0-70.0) 05/03/21 07:31 Seg Neutrophils # 2.7 K/mm3 (1.8-7.7) 05/03/21 07:31 PT 13.8 Sec. (12.2-14.9) 05/03/21 07:31 INR 0.96 (0.87-1.13) 05/03/21 07:31 APTT 28.9 Sec. (24.2-36.6) 05/03/21 07:31 Thrombin Time 16.9 Sec. (15.1-19.6) 05/03/21 07:31 Sodium 141 mmol/L (137-145) 05/03/21 07:31 Potassium 4.7 mmol/L (3.6-5.0) 05/03/21 07:31 Chloride 103.6 mmol/L (98-107) 05/03/21 07:31 Carbon Dioxide 26 mmol/L (22-30) 05/03/21 07:31 Anion Gap 16 mmol/L 05/03/21 07:31 BUN 10 mg/dL (9-20) 05/03/21 07:31 Creatinine 1.0 mg/dL (0.8-1.3) 05/03/21 07:31 Estimated GFR > 60 ml/min 05/03/21 07:31 BUN/Creatinine Ratio 10 % 05/03/21 07:31 Glucose 102 mg/dL (75-100) H 05/03/21 07:31 POC Glucose 111 mg/dL (70-105) H 05/03/21 07:18 Calcium 9.3 mg/dL (8.4-10.2) 05/03/21 07:31 Troponin T < 0.010 ng/mL (0.00-0.029) 05/03/21 07:31 Assessment and Plan Assessment and plan: Assessment and plan #Left-sided weakness - left facial, LUE, LLE numbness. - CVA alert on admission, no indication for tPA. - CT brain: no acute intracranial abnl - CTA head: No significant abnormality - CTA neck: No significant abnormality - neurology consulted -Telemetry - ECHO ordered - TSH, A1c, lipid panel ordered - will order MRI brain, MRI C-spine, MRI-L spine Start aspirin 81 #Hypertension - monitor on VS checks. #Hyperlipidemia - lipid panel ordered -resume home statin #chronic back pain - states LLE most bothersome, issues with ambulatoin - MR L spine ordered as above. - resume home meds #History of pacemaker - monitor for arrhythmia on tele #Advance care planning Disease education conducted, care plan discussed, diagnoses discussed, prognosis discussed, patient is full code, patient acknowledges understanding and agree with care plan, +30 minutes.
[2021-05-03] MEDS ORDERED: ACETAMINOPHEN 325 MG TAB PO PRN (11:00)
[2021-05-03] MEDS ORDERED: oxyCODONE /ACETAMINOPHEN 5-325MG TAB PO PRN (11:00)
[2021-05-03] MEDS ORDERED: ONDANSETRON 4 MG/2 ML INJ IV PRN (11:00)
[2021-05-03 13:28] LABS: Chol/HDL Ratio 3.35 %
[2021-05-03] MEDS: HYDROcodone/ACETAMINOPHEN 5-325 MG TAB PO PRN ×2 (16:28→21:03)
[2021-05-03] MEDS ORDERED: NON-FORMULARY EACH (Lovastatin [Altoprev] 40 MG Tab.Er.24h) PO SCH (18:00)
[2021-05-03 18:15] LABS: Amphetamine Screen,Urine Negative; Benzodiazepines Screen,Urine Negative; Cannabinoid Screen,Urine Negative; Cocaine Screen,Urine Negative; Methadone Screen,Urine Negative; Opiate Screen,Urine Negative
[2021-05-03] MEDS ORDERED: PRAVASTATIN 40 MG TAB PO SCH (22:00)
[2021-05-04] MEDS: HYDROcodone/ACETAMINOPHEN 5-325 MG TAB PO PRN ×2 (00:35→09:40)
--- NOTE | 2021-05-04 07:38 | Progress Note ---
Assessment and Plan Assessment and plan: Hospital Course: 05/04: Unable to complete MRI yesterday as PPM is not MRI safe. Will await remainder of work up with ECHO and for PT assessment. Started patient on gabapentin. Assessment and plan #Left-sided weakness/numbness - left facial, LUE, LLE numbness. Issues with ambulation per patient. - CVA alert on admission, no indication for tPA. - CT brain: no acute intracranial abnl - CTA head: No significant abnormality - CTA neck: No significant abnormality - neurology consulted -Telemetry - ECHO ordered - TSH: 0.635, A1c: 4.7, lipid panel (LDL: 71, TChol: 114, T) - PT consult - Ordered MRI brain, MRI C-spine, MRI-L spine, however cancelled due to patient PPM. Start aspirin 81 -Start gabapentin 100 mg tid. #Hypertension - monitor on VS checks. #Hyperlipidemia - lipid panel ordered -resume home statin #chronic back pain - states LLE most bothersome, issues with ambulatoin - MR L spine ordered as above. - resume home meds #History of pacemaker - monitor for arrhythmia on tele #Advance care planning Disease education conducted, care plan discussed, diagnoses discussed, prognosis discussed, patient is full code, patient acknowledges understanding and agree with care plan, +30 minutes. Hospitalist Physical - Physical exam Narrative exam: Physical Exam: VITAL SIGNS: Reviewed. GENERAL: The patient appears normally developed, Vital signs as documented. HEAD: No signs of head trauma. EYES: Pupils are equal. Extraocular motions intact. EARS: Hearing grossly intact. MOUTH: Oropharynx is normal. NECK: No adenopathy, no JVD. CHEST: Chest with clear breath sounds bilaterally. No wheezes, rales, or rhonchi. CARDIAC: Regular rate and rhythm. S1 and S2, without murmurs, gallops, or rubs . VASCULAR: No Edema. Peripheral pulses normal and equal in all extremities. ABDOMEN: Soft, non tender and non distended. No rebound or guarding, and no masses palpated. Bowel Sounds normal. MUSCULOSKELETAL: Good range of motion of all major joints. Extremities without clubbing, cyanosis or edema. NEUROLOGIC EXAM: Alert and oriented x 4. no focal sensory or strength deficits. PSYCHIATRIC: Mood normal. SKIN: detail exam as documented in skin assessment - Constitutional Vitals: Temp Pulse Resp BP Pulse Ox 98.2 F 70 18 135/70 98 05/04/21 04:39 05/04/21 04:39 05/04/21 04:39 05/04/21 04:39 05/04/21 04:39 HEART Score - HEART Score Troponin: Troponin T < 0.010 ng/mL (0.00-0.029) 05/03/21 07:31 Results - Labs CBC & Chem 7: 05/03/21 07:31 05/03/21 07:31 Labs: Laboratory Last Values WBC 4.2 K/mm3 (4.5-11.0) L 05/03/21 07:31 RBC 4.25 M/mm3 (3.65-5.03) 05/03/21 07: Hgb 12.8 gm/dl (11.8-15.2) 05/03/21 07:31 Hct 36.6 % (35.5-45.6) 05/03/21 07:31 MCV 86 fl (84-94) 05/03/21 07: MCH 30 pg (28-32) 05/03/21 07: MCHC 35 % (32-34) H 05/03/21 07:31 RDW 13.0 % (13.2-15.2) L 05/03/21 07:31 Plt Count 169 K/mm3 (140-440) 05/03/21 07:31 Lymph % (Auto) 26.7 % (13.4-35.0) 05/03/21 07:31 [place] % (Auto) 7.5 % (0.0-7.3) H 05/03/21 07:31 Eos % (Auto) 1.8 % (0.0-4.3) 05/03/21 07:31 Baso % (Auto) 0.6 % (0.0-1.8) 05/03/21 07:31 Lymph # (Auto) 1.1 K/mm3 (1.2-5.4) L 05/03/21 07:31 [place] # (Auto) 0.3 K/mm3 (0.0-0.8) 05/03/21 07:31 Eos # (Auto) 0.1 K/mm3 (0.0-0.4) 05/03/21 07:31 Baso # (Auto) 0.0 K/mm3 (0.0-0.1) 05/03/21 07:31 Seg Neutrophils % 63.4 % (40.0-70.0) 05/03/21 07:31 Seg Neutrophils # 2.7 K/mm3 (1.8-7.7) 05/03/21 07:31 PT 13.8 Sec. (12.2-14.9) 05/03/21 07:31 INR 0.96 (0.87-1.13) 05/03/21 07:31 APTT 28.9 Sec. (24.2-36.6) 05/03/21 07:31 Thrombin Time 16.9 Sec. (15.1-19.6) 05/03/21 07:31 Sodium 141 mmol/L (137-145) 05/03/21 07:31 Potassium 4.7 mmol/L (3.6-5.0) 05/03/21 07:31 Chloride 103.6 mmol/L (98-107) 05/03/21 07:31 Carbon Dioxide 26 mmol/L (22-30) 05/03/21 07:31 Anion Gap 16 mmol/L 05/03/21 07:31 BUN 10 mg/dL (9-20) 05/03/21 07:31 Creatinine 1.0 mg/dL (0.8-1.3) 05/03/21 07:31 Estimated GFR > 60 ml/min 05/03/21 07:31 BUN/Creatinine Ratio 10 % 05/03/21 07:31 Glucose 102 mg/dL (75-100) H 05/03/21 07:31 POC Glucose 111 mg/dL (70-105) H 05/03/21 07:18 Hemoglobin A1c 4.7 % (4-6) 05/03/21 12:19 Calcium 9.3 mg/dL (8.4-10.2) 05/03/21 07:31 Troponin T < 0.010 ng/mL (0.00-0.029) 05/03/21 07:31 Triglycerides 100 mg/dL (2-149) 05/03/21 12:19 Cholesterol 114 mg/dL (50-199) 05/03/21 12:19 LDL Cholesterol Direct 71 mg/dL (50-130) 05/03/21 12:19 HDL Cholesterol 34 mg/dL (40-59) L 05/03/21 12:19 Cholesterol/HDL Ratio 3.35 % 05/03/21 12:19 TSH 0.635 mlU/mL (0.270-4.200) 05/03/21 12:19 Urine Opiates Screen Negative 05/03/21 17:00 Urine Methadone Screen Negative 05/03/21 17:00 Ur Barbiturates Screen Negative 05/03/21 17:00 Ur Phencyclidine Scrn Negative 05/03/21 17:00 Ur Amphetamines Screen Negative 05/03/21 17:00 U Benzodiazepines Scrn Negative 05/03/21 17:00 Urine Cocaine Screen Negative 05/03/21 17:00 U Marijuana (THC) Screen Negative 05/03/21 17:00 Drugs of Abuse Note Disclamer 05/03/21 17:00 [place]/IV: Voiding Method Urinal Active Medications - Current Medications Current Medications: Generic Name Dose Route Start Last Admin Trade Name Freq PRN Reason Stop Dose Admin Acetaminophen 650 mg 05/03/21 11:00 05/03/21 16:36 Acetaminophen 325 Mg Tab PO 650 mg Q4H PRN Administration Pain MILD(1-3)/Fever >100.5/CANALES Hydrocodone Bitart/Acetaminophen 1 each 05/03/21 11:29 05/04/21 00:35 Hydrocodone/Acetaminophen 5-325 Mg Tab PO 1 each TID PRN Administration PAIN Amlodipine Besylate 5 mg 05/04/21 10:00 Amlodipine 5 Mg Tab PO QDAY BHAVIN Aspirin 81 mg 05/04/21 10:00 Aspirin Ec 81 Mg Tab PO QDAY BHAVIN Gabapentin 100 mg 05/04/21 08:00 Gabapentin 100 Mg Cap PO Q8HR BHAVIN Lisinopril 20 mg 05/04/21 10:00 Lisinopril 20 Mg Tab PO QDAY BHAVIN Ondansetron HCl 4 mg 05/03/21 11:00 Ondansetron 4 Mg/2 Ml Inj IV Q8H PRN Nausea And Vomiting Pravastatin Sodium 40 mg 05/03/21 22:00 05/03/21 21:03 Pravastatin 40 Mg Tab PO 40 mg QHS BHAVIN Administration Sodium Chloride 10 ml 05/03/21 22:00 05/03/21 21:04 Sodium Chloride 0.9% 10 Ml Flush Syringe IV 10 ml BID BHAVIN Administration Sodium Chloride 10 ml 05/03/21 11:00 Sodium Chloride 0.9% 10 Ml Flush Syringe IV PRN PRN LINE FLUSH
[2021-05-04] MEDS ORDERED: GABAPENTIN 100 MG CAP PO SCH (08:00)
--- NOTE | 2021-05-04 08:37 | Electrocardiograph Report ---
[facility] Test Date: 2021-05-03 Test Time: 07:07:32 Pat Name: AISLINN FIERRO Department: Room: A451 1 Gender: M Concierge: TV : 1945 Requested By: DANA MORTON Order Number: [id number] Reading MD: Frank Lanza Measurements Intervals [place] Rate: 62 P: 0 KS: 74 QRS: 56 QRSD: 159 T: -3 QT: 447 QTc: 454 Interpretive Statements Atrial-paced complexes Right bundle branch block No previous ECG available for comparison Electronically Signed On 05-04-2021 8:37:10 EDT by Frank Lanza
[2021-05-04 08:39] VITALS: BP 148/85
[2021-05-04] MEDS ORDERED: ASPIRIN EC 81 MG TAB PO SCH (10:00)
[2021-05-04] MEDS ORDERED: amLODIPine 5 MG TAB PO SCH (10:00)
[2021-05-04] MEDS ORDERED: LISINOPRIL 20 MG TAB PO SCH (10:00)
--- NOTE | 2021-05-04 11:50 | Discharge Summary ---
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 Numbness and tingling appears to be worse over the past 2 to 3 weeks making it increasingly difficult for patient to walk. Patient states that the numbness associated with weakness. He denies any visual changes, dizziness, difficulty swallowing. He has no aggravating or relieving factors. He denies any temporal changes for his numbness. He denies any changes to his symptoms when he is either seated or standing. He does endorse lower back pain that is been chronic for some time. He has been told he has arthritis in the past by his primary care doctors. Remainder of ROS negative except for stated above Assessment and plan: Hospital Course: 05/04: Unable to complete MRI yesterday as PPM is not MRI safe. he states he has had these symptoms for quite some time now and are particularly worse with sitting vs standing. patient states that his numbness is primarily localized in both legs which was different than his initial complaint. He is completely ambulatory and has good strength. Doubt CVA/TIA given symptoms. Patient responded to gabapentin administered. We will be discharging him with rx for gabapentin and advise him to follow up with his pcp in 3-5 days. Assessment and plan #Left-sided weakness/numbness - left facial, LUE, LLE numbness. Issues with ambulation per patient. - CVA alert on admission, no indication for tPA. - CT brain: no acute intracranial abnl - CTA head: No significant abnormality - CTA neck: No significant abnormality - neurology consulted -Telemetry - ECHO ordered - TSH: 0.635, A1c: 4.7, lipid panel (LDL: 71, TChol: 114, T) - PT consult - Ordered MRI brain, MRI C-spine, MRI-L spine, however cancelled due to patient PPM. Start aspirin 81 -Start gabapentin 100 mg tid. #Hypertension - monitor on VS checks. #Hyperlipidemia - lipid panel ordered -resume home statin #chronic back pain - states LLE most bothersome, issues with ambulatoin - MR Rober spine ordered as above. - resume home meds #History of pacemaker - monitor for arrhythmia on tele #Advance care planning Disease education conducted, care plan discussed, diagnoses discussed, prognosis discussed, patient is full code, patient acknowledges understanding and agree with care plan, +30 minutes. Disposition: HOME / SELF CARE / HOMELESS Final Discharge Diagnosis (Prints w/discharge instructions): peripheral neuropathy Time spent for discharge: 25 Core Measure Documentation - Palliative Care Palliative Care/ Comfort Measures: Not Applicable - Core Measures Any of the following diagnoses?: none Exam - Physical Exam Narrative exam: Physical Exam: VITAL SIGNS: Reviewed. GENERAL: The patient appears normally developed, Vital signs as documented. HEAD: No signs of head trauma. EYES: Pupils are equal. Extraocular motions intact. EARS: Hearing grossly intact. MOUTH: Oropharynx is normal. NECK: No adenopathy, no JVD. CHEST: Chest with clear breath sounds bilaterally. No wheezes, rales, or rhonchi. CARDIAC: Regular rate and rhythm. S1 and S2, without murmurs, gallops, or rubs. VASCULAR: No Edema. Peripheral pulses normal and equal in all extremities. ABDOMEN: Soft, non tender and non distended. No rebound or guarding, and no masses palpated. Bowel Sounds normal. MUSCULOSKELETAL: Good range of motion of all major joints. Extremities without clubbing, cyanosis or edema. NEUROLOGIC EXAM: Alert and oriented x 4. no focal sensory or strength deficits. PSYCHIATRIC: Mood normal. SKIN: detail exam as documented in skin assessment - Constitutional Vitals: Temp Pulse Resp BP Pulse Ox 98.5 F 87 18 148/85 98 05/04/21 07:37 05/04/21 09:40 05/04/21 07:37 05/04/21 09:39 05/04/21 07:37 Plan Activity: no restrictions Weight Bearing Status: Full Weight Bearing Diet: low salt Follow up with: PRIMARY CARE, [Primary Care Provider] - 3-5 Days Prescriptions: Gabapentin 100 mg PO Q8HR 30 Days #90 capsule
== END 2021-05-04 01:40 | disposition home or self-care (01) ==
LOC: ED 07:00 → 4A 08:54
PROVIDERS: ADMIT Internal Medicine; ATTEND Internal Medicine
DX: I63.9 Cerebral infarction, unspecified (principal); I10 Essential (primary) hypertension; G89.29 Other chronic pain; M54.9 Dorsalgia, unspecified; M62.81 Muscle weakness (generalized); M19.90 Unspecified osteoarthritis, unspecified site; K21.9 Gastro-esophageal reflux disease without esophagitis; E78.00 Pure hypercholesterolemia, unspecified; E78.5 Hyperlipidemia, unspecified; R20.0 Anesthesia of skin; R29.701 NIHSS score 1; Z95.0 Presence of cardiac pacemaker; Z79.82 Long term (current) use of aspirin; Z79.899 Other long term (current) drug therapy; Z98.890 Other specified postprocedural states
CPT/HCPCS: 36415; 70450; 70496; 70498; 80048; 80061; 80307; 82962; 83036; 84443; 84484; 85025; 85610; 85670; 85730; 93005; 93306; 99285; A9270; G0378; J3246; Q9967